=== PATIENT | male | born 1950 | race American Indian/Alaskan Native ===

== ENCOUNTER 2017-10-02 18:16 | Inpatient (IN) | payer MEDICARE, MEDICAID ==
[~2017-10-02] VITALS: Ht 170.2 cm; Wt 67.7 kg
[2017-10-02 01:20] VITALS: BP 107/58
[~2017-10-02 18:16] MED LIST: AMLO2.5T2 PO; BENA40TA2 PO; BESI5DRO EACHEYE; BRIM5DRO3 RIGHTEYE; CINA30TA PO; DIALYSIS; DIAZ-351 PO; DIFL5DRO RIGHTEYE; FEXO-124 PO; LOSA25TA96 PO; NAS0.025NS BOTHNARES; PER5325T PO; POLY15DR56 EACHEYE; SEVE800T8 PO
[2017-10-02 19:03] LABS: BASOPHILS # (AUTO) 0.1 X10'3 (0-0.2); BASOPHILS % (AUTO) 0.8 % (0-1); EOSINOPHILS # (AUTO) 0.2 X10'3 (0-0.9); EOSINOPHILS % (AUTO) 2.9 % (0-6); HEMATOCRIT 35.7 % (42.0-52.0); HEMOGLOBIN 11.6 g/dl (14.0-17.9); LYMPHOCYTES # (AUTO) 0.8 X10'3 (1.1-4.8); LYMPHOCYTES % (AUTO) 10.5 % (21-51); MEAN CORPUSCULAR HEMOGLOBIN 27.2 PG (27.0-31.0); MEAN CORPUSCULAR HGB CONC 32.3 % (33.0-36.5); MEAN PLATELET VOLUME 8.2 FL (7.4-10.4); MONOCYTES # (AUTO) 0.3 X10'3 (0-0.9); MONOCYTES % (AUTO) 4.4 % (2-12); NEUTROPHILS # (AUTO) 6.3 X10'3 (1.8-7.7); NEUTROPHILS % (AUTO) 81.4 % (42-75); PLATELET COUNT 162 X10'3 (140-440); RED BLOOD COUNT 4.25 X10'6 (4.70-6.10); RED CELL DISTRIBUTION WIDTH 17.4 % (11.5-14.5); WHITE BLOOD COUNT 7.7 X10'3 (4.5-11.0)
[2017-10-02 19:14] LABS: INR 1.5 INR; PARTIAL THROMBOPLASTIN TIME 44 SECONDS (22-32)
[2017-10-02 19:17] LABS: ALANINE AMINOTRANSFERASE 21 U/L (12-78); ALBUMIN 2.4 G/DL (3.4-5.0); ALBUMIN/GLOBULIN RATIO 0.5 (1.1-1.5); ALKALINE PHOSPHATASE 150 IU/L (46-116); ANION GAP 10 (8-16); ASPARTATE AMINO TRANSFERASE 25 U/L (10-37); BILIRUBIN,TOTAL 0.9 MG/DL (0.1-1.0); BLOOD UREA NITROGEN 37 MG/DL (7-18); BUN/CREATININE RATIO 4.8 (5.4-32.0); CALCIUM 10.2 MG/DL (8.5-10.1); CHLORIDE 101 MMOL/L (99-107); CREATININE 7.65 MG/DL (0.60-1.10); GLUCOSE 100 MG/DL (70-104); MAGNESIUM 2.2 MG/DL (1.5-2.4); PHOSPHORUS 4.3 MG/DL (2.3-4.5); SODIUM 141 MMOL/L (135-145); TOTAL CARBON DIOXIDE 29.8 MMOL/L (24-32); TOTAL PROTEIN 7.4 G/DL (6.4-8.2); eGFR 7 ML/MIN
[2017-10-02] MEDS ORDERED: ondansetron/PF 4mg/2ml inj IV PRN (23:25)
[2017-10-02] MEDS ORDERED: acetaminophen 325mg tablet PO PRN ×2 (23:25)
[2017-10-02] MEDS ORDERED: diazepam 5mg tablet PO PRN (23:30)
[2017-10-03 00:30] VITALS: BP 107/58
[2017-10-03] MEDS: oxyCODONE/APAP 5-325mg tablet PO PRN (00:47)
[2017-10-03 06:21] LABS: BASOPHILS % (AUTO) 0.6 % (0-1); EOSINOPHILS # (AUTO) 0.2 X10'3 (0-0.9); EOSINOPHILS % (AUTO) 3.7 % (0-6); HEMATOCRIT 29.9 % (42.0-52.0); HEMOGLOBIN 9.6 g/dl (14.0-17.9); LYMPHOCYTES # (AUTO) 0.8 X10'3 (1.1-4.8); LYMPHOCYTES % (AUTO) 16.3 % (21-51); MEAN CORPUSCULAR HEMOGLOBIN 27.2 PG (27.0-31.0); MEAN CORPUSCULAR HGB CONC 32.2 % (33.0-36.5); MEAN CORPUSCULAR VOLUME 84.6 FL (78-98); MEAN PLATELET VOLUME 8.4 FL (7.4-10.4); MONOCYTES # (AUTO) 0.4 X10'3 (0-0.9); MONOCYTES % (AUTO) 7.4 % (2-12); NEUTROPHILS # (AUTO) 3.8 X10'3 (1.8-7.7); PLATELET COUNT 136 X10'3 (140-440); RED BLOOD COUNT 3.53 X10'6 (4.70-6.10); RED CELL DISTRIBUTION WIDTH 17.1 % (11.5-14.5); WHITE BLOOD COUNT 5.2 X10'3 (4.5-11.0)
[2017-10-03 07:04] LABS: ALANINE AMINOTRANSFERASE 19 U/L (12-78); ALBUMIN 1.8 G/DL (3.4-5.0); ALBUMIN/GLOBULIN RATIO 0.5 (1.1-1.5); ALKALINE PHOSPHATASE 115 IU/L (46-116); ANION GAP 9 (8-16); ASPARTATE AMINO TRANSFERASE 28 U/L (10-37); BILIRUBIN,TOTAL 0.7 MG/DL (0.1-1.0); BLOOD UREA NITROGEN 36 MG/DL (7-18); BUN/CREATININE RATIO 4.5 (5.4-32.0); CALCIUM 9.4 MG/DL (8.5-10.1); CHLORIDE 102 MMOL/L (99-107); CREATININE 8.03 MG/DL (0.60-1.10); GLUCOSE 69 MG/DL (70-104); MAGNESIUM 2.2 MG/DL (1.5-2.4); PHOSPHORUS 4.6 MG/DL (2.3-4.5); POTASSIUM 3.9 MMOL/L (3.5-5.1); SODIUM 139 MMOL/L (135-145); TOTAL CARBON DIOXIDE 28.4 MMOL/L (24-32); TOTAL PROTEIN 5.7 G/DL (6.4-8.2); eGFR 7 ML/MIN
[2017-10-03 07:18] VITALS: BP 90/44
[2017-10-03] MEDS ORDERED: FEXOFENADINE HCL PO SCH (08:00)
[2017-10-03] MEDS: cinacalcet 30mg tablet PO SCH (08:00)
[2017-10-03] MEDS: losartan 25mg tablet PO SCH (08:00)
[2017-10-03] MEDS: amLODIPine 2.5mg tablet PO SCH (08:00)
[2017-10-03] MEDS ORDERED: non-formulary drug (Benazepril Hcl* (Lotensin*) 1 TAB) PO SCH (08:00)
[2017-10-03] MEDS: lisinopril 20mg tablet PO SCH (08:00)
[2017-10-03] MEDS ORDERED: FLUNISOLIDE BOTHNARES SCH (08:00)
[2017-10-03] MEDS: DIFLUPREDNATE 0.05% RIGHTEYE SCH (08:00)
[2017-10-03] MEDS: BESIFLOXACIN HYDROCHLORIDE EACHEYE SCH (08:00)
[2017-10-03] MEDS: OPTH RIGHTEYE SCH (08:00)
[2017-10-03] MEDS: heparin, porcine 5000 units/ml vial SQ SCH ×2 (08:00→21:18)
[2017-10-03] MEDS: EYE RIGHTEYE SCH (08:00)
[2017-10-03] MEDS: cetirizine 10mg tablet PO SCH ×2 (08:16→09:02)
[2017-10-03] MEDS: sevelamer carbonate 800mg tablet PO SCH ×3 (08:16→18:00)
[2017-10-03 08:17] VITALS: BP 90/49
[2017-10-03] MEDS: brimonidine 0.2% 5 ML ophthalmic drops RIGHTEYE SCH ×2 (11:18→21:18)
[2017-10-03] MEDS: fluticasone nasal spray 16GM bottle NS SCH (11:19)
[2017-10-03 11:39] VITALS: BP 101/52
[2017-10-03 19:30] VITALS: BP 111/55
[2017-10-03 23:30] VITALS: BP 114/68
[2017-10-04 06:10] LABS: BASOPHILS % (AUTO) 0.4 % (0-1); EOSINOPHILS # (AUTO) 0.2 X10'3 (0-0.9); EOSINOPHILS % (AUTO) 3.4 % (0-6); HEMATOCRIT 30.1 % (42.0-52.0); HEMOGLOBIN 9.8 g/dl (14.0-17.9); LYMPHOCYTES # (AUTO) 1.1 X10'3 (1.1-4.8); LYMPHOCYTES % (AUTO) 18.8 % (21-51); MEAN CORPUSCULAR HEMOGLOBIN 27.6 PG (27.0-31.0); MEAN CORPUSCULAR HGB CONC 32.4 % (33.0-36.5); MEAN CORPUSCULAR VOLUME 85.2 FL (78-98); MEAN PLATELET VOLUME 8.3 FL (7.4-10.4); MONOCYTES # (AUTO) 0.3 X10'3 (0-0.9); MONOCYTES % (AUTO) 5.9 % (2-12); NEUTROPHILS % (AUTO) 71.5 % (42-75); PLATELET COUNT 134 X10'3 (140-440); RED BLOOD COUNT 3.53 X10'6 (4.70-6.10); RED CELL DISTRIBUTION WIDTH 17.8 % (11.5-14.5); WHITE BLOOD COUNT 5.6 X10'3 (4.5-11.0)
[2017-10-04 06:49] LABS: ALANINE AMINOTRANSFERASE 22 U/L (12-78); ALBUMIN 1.9 G/DL (3.4-5.0); ALBUMIN/GLOBULIN RATIO 0.5 (1.1-1.5); ALKALINE PHOSPHATASE 111 IU/L (46-116); ANION GAP 8 (8-16); ASPARTATE AMINO TRANSFERASE 29 U/L (10-37); BILIRUBIN,TOTAL 0.6 MG/DL (0.1-1.0); BLOOD UREA NITROGEN 41 MG/DL (7-18); BUN/CREATININE RATIO 4.6 (5.4-32.0); CALCIUM 9.3 MG/DL (8.5-10.1); CHLORIDE 101 MMOL/L (99-107); CREATININE 8.91 MG/DL (0.60-1.10); GLUCOSE 66 MG/DL (70-104); MAGNESIUM 2.2 MG/DL (1.5-2.4); PHOSPHORUS 5.1 MG/DL (2.3-4.5); POTASSIUM 4.2 MMOL/L (3.5-5.1); SODIUM 138 MMOL/L (135-145); TOTAL PROTEIN 5.9 G/DL (6.4-8.2); eGFR 6 ML/MIN
[2017-10-04 07:00] VITALS: BP 127/58
[2017-10-04] MEDS: sevelamer carbonate 800mg tablet PO SCH ×3 (07:30→17:30)
[2017-10-04] MEDS: losartan 25mg tablet PO SCH (08:00)
[2017-10-04] MEDS: EYE RIGHTEYE SCH (08:00)
[2017-10-04] MEDS: BESIFLOXACIN HYDROCHLORIDE EACHEYE SCH (08:00)
[2017-10-04] MEDS ORDERED: LIDOcaine 1% (10mg/ml) 2ml vial SQ ONE (08:00)
[2017-10-04] MEDS: amLODIPine 2.5mg tablet PO SCH (08:00)
[2017-10-04] MEDS: DIFLUPREDNATE 0.05% RIGHTEYE SCH (08:00)
[2017-10-04] MEDS: brimonidine 0.2% 5 ML ophthalmic drops RIGHTEYE SCH ×2 (08:00→21:25)
[2017-10-04] MEDS ORDERED: heparin 1,000unit/ml 10ml vial 10 ML IV ONE (08:00)
[2017-10-04] MEDS: fluticasone nasal spray 16GM bottle NS SCH (08:00)
[2017-10-04] MEDS ORDERED: epoetin 20,000 units/ml inj IV ONE (08:00)
[2017-10-04] MEDS: heparin, porcine 5000 units/ml vial SQ SCH ×2 (08:00→21:25)
[2017-10-04] MEDS: lisinopril 20mg tablet PO SCH (08:00)
[2017-10-04] MEDS: OPTH RIGHTEYE SCH (08:00)
[2017-10-04] MEDS: cinacalcet 30mg tablet PO SCH (08:00)
[2017-10-04 11:20] VITALS: BP 132/62
[2017-10-04] MEDS: oxyCODONE/APAP 5-325mg tablet PO PRN (11:58)
[2017-10-04 19:00] VITALS: BP 104/54
[2017-10-04] MEDS: polyvinyl alcohol ophthalmic drops 15ml bottle EACHEYE PRN (21:27)
[2017-10-04 23:00] VITALS: BP 105/58
[2017-10-05] MEDS: sevelamer carbonate 800mg tablet PO SCH ×3 (07:30→16:56)
[2017-10-05 07:32] VITALS: BP 122/63
[2017-10-05] MEDS: BESIFLOXACIN HYDROCHLORIDE EACHEYE SCH (08:00)
[2017-10-05] MEDS: OPTH RIGHTEYE SCH (08:00)
[2017-10-05] MEDS: DIFLUPREDNATE 0.05% RIGHTEYE SCH (08:00)
[2017-10-05] MEDS: heparin, porcine 5000 units/ml vial SQ SCH ×2 (08:00→19:50)
[2017-10-05] MEDS: EYE RIGHTEYE SCH (08:00)
[2017-10-05] MEDS: fluticasone nasal spray 16GM bottle NS SCH (08:00)
[2017-10-05] MEDS: losartan 25mg tablet PO SCH (09:26)
[2017-10-05] MEDS: cetirizine 10mg tablet PO SCH (09:26)
[2017-10-05] MEDS: amLODIPine 2.5mg tablet PO SCH (09:26)
[2017-10-05] MEDS: cinacalcet 30mg tablet PO SCH (09:26)
[2017-10-05] MEDS: lisinopril 20mg tablet PO SCH (09:27)
[2017-10-05] MEDS: brimonidine 0.2% 5 ML ophthalmic drops RIGHTEYE SCH ×2 (09:28→19:49)
[2017-10-05 11:00] VITALS: BP 119/59
[2017-10-05] MEDS: oxyCODONE/APAP 5-325mg tablet PO PRN (11:10)
[2017-10-05 19:00] VITALS: BP 134/74
[2017-10-06] VITALS: BP 111/66
[2017-10-06 05:59] LABS: BASOPHILS % (AUTO) 0.8 % (0-1); EOSINOPHILS # (AUTO) 0.2 X10'3 (0-0.9); HEMATOCRIT 31.6 % (42.0-52.0); HEMOGLOBIN 10.2 g/dl (14.0-17.9); LYMPHOCYTES # (AUTO) 0.8 X10'3 (1.1-4.8); LYMPHOCYTES % (AUTO) 16.9 % (21-51); MEAN CORPUSCULAR HEMOGLOBIN 27.6 PG (27.0-31.0); MEAN CORPUSCULAR HGB CONC 32.3 % (33.0-36.5); MEAN CORPUSCULAR VOLUME 85.5 FL (78-98); MEAN PLATELET VOLUME 8.4 FL (7.4-10.4); MONOCYTES # (AUTO) 0.3 X10'3 (0-0.9); NEUTROPHILS # (AUTO) 3.5 X10'3 (1.8-7.7); NEUTROPHILS % (AUTO) 71.3 % (42-75); PLATELET COUNT 138 X10'3 (140-440); RED CELL DISTRIBUTION WIDTH 17.8 % (11.5-14.5); WHITE BLOOD COUNT 4.9 X10'3 (4.5-11.0)
[2017-10-06 06:28] LABS: ALANINE AMINOTRANSFERASE 20 U/L (12-78); ALBUMIN 1.9 G/DL (3.4-5.0); ALBUMIN/GLOBULIN RATIO 0.4 (1.1-1.5); ALKALINE PHOSPHATASE 128 IU/L (46-116); ANION GAP 8 (8-16); ASPARTATE AMINO TRANSFERASE 22 U/L (10-37); BILIRUBIN,TOTAL 0.7 MG/DL (0.1-1.0); BLOOD UREA NITROGEN 27 MG/DL (7-18); CALCIUM 8.8 MG/DL (8.5-10.1); CHLORIDE 101 MMOL/L (99-107); CREATININE 6.67 MG/DL (0.60-1.10); GLUCOSE 79 MG/DL (70-104); PHOSPHORUS 4.7 MG/DL (2.3-4.5); POTASSIUM 4.1 MMOL/L (3.5-5.1); SODIUM 139 MMOL/L (135-145); TOTAL CARBON DIOXIDE 30.5 MMOL/L (24-32); TOTAL PROTEIN 6.3 G/DL (6.4-8.2); eGFR 8 ML/MIN
[2017-10-06] MEDS: sevelamer carbonate 800mg tablet PO SCH ×3 (07:30→17:30)
[2017-10-06] MEDS ORDERED: heparin 1,000unit/ml 10ml vial 10 ML IV ONE (08:00)
[2017-10-06] MEDS: BESIFLOXACIN HYDROCHLORIDE EACHEYE SCH (08:00)
[2017-10-06] MEDS ORDERED: normal saline 1000ml 250 ML IV PRN (08:00)
[2017-10-06] MEDS: heparin, porcine 5000 units/ml vial SQ SCH ×2 (08:00→20:00)
[2017-10-06] MEDS: brimonidine 0.2% 5 ML ophthalmic drops RIGHTEYE SCH ×2 (08:00→20:00)
[2017-10-06] MEDS: lisinopril 20mg tablet PO SCH (08:00)
[2017-10-06] MEDS: DIFLUPREDNATE 0.05% RIGHTEYE SCH (08:00)
[2017-10-06] MEDS: OPTH RIGHTEYE SCH (08:00)
[2017-10-06] MEDS ORDERED: epoetin 20,000 units/ml inj IV ONE (08:00)
[2017-10-06] MEDS: fluticasone nasal spray 16GM bottle NS SCH (08:00)
[2017-10-06] MEDS: losartan 25mg tablet PO SCH (08:00)
[2017-10-06] MEDS ORDERED: LIDOcaine 1% (10mg/ml) 2ml vial SQ ONE (08:00)
[2017-10-06] MEDS: cinacalcet 30mg tablet PO SCH (08:00)
[2017-10-06] MEDS: cetirizine 10mg tablet PO SCH (08:00)
[2017-10-06] MEDS: amLODIPine 2.5mg tablet PO SCH (08:00)
[2017-10-06] MEDS: EYE RIGHTEYE SCH (08:00)
[2017-10-06 08:10] VITALS: BP 129/70
[2017-10-06] MEDS ORDERED: LIDOcaine 2% 5ml jelly TOP STA (09:59)
[2017-10-06 20:00] VITALS: BP 128/70
[2017-10-07 05:59] LABS: BASOPHILS % (AUTO) 0.8 % (0-1); EOSINOPHILS # (AUTO) 0.1 X10'3 (0-0.9); EOSINOPHILS % (AUTO) 2.6 % (0-6); HEMATOCRIT 33.3 % (42.0-52.0); HEMOGLOBIN 10.6 g/dl (14.0-17.9); LYMPHOCYTES # (AUTO) 0.8 X10'3 (1.1-4.8); LYMPHOCYTES % (AUTO) 15.4 % (21-51); MEAN CORPUSCULAR HEMOGLOBIN 27.2 PG (27.0-31.0); MEAN CORPUSCULAR VOLUME 84.9 FL (78-98); MEAN PLATELET VOLUME 7.9 FL (7.4-10.4); MONOCYTES # (AUTO) 0.4 X10'3 (0-0.9); MONOCYTES % (AUTO) 7.2 % (2-12); NEUTROPHILS # (AUTO) 3.6 X10'3 (1.8-7.7); PLATELET COUNT 129 X10'3 (140-440); RED BLOOD COUNT 3.92 X10'6 (4.70-6.10); RED CELL DISTRIBUTION WIDTH 18.9 % (11.5-14.5); WHITE BLOOD COUNT 4.9 X10'3 (4.5-11.0)
[2017-10-07 07:02] LABS: ALANINE AMINOTRANSFERASE 16 U/L (12-78); ALBUMIN 1.9 G/DL (3.4-5.0); ALBUMIN/GLOBULIN RATIO 0.4 (1.1-1.5); ALKALINE PHOSPHATASE 129 IU/L (46-116); ANION GAP 8 (8-16); ASPARTATE AMINO TRANSFERASE 19 U/L (10-37); BILIRUBIN,TOTAL 0.8 MG/DL (0.1-1.0); BLOOD UREA NITROGEN 14 MG/DL (7-18); BUN/CREATININE RATIO 3.2 (5.4-32.0); CALCIUM 9.3 MG/DL (8.5-10.1); CHLORIDE 101 MMOL/L (99-107); CREATININE 4.44 MG/DL (0.60-1.10); GLUCOSE 51 MG/DL (70-104); MAGNESIUM 1.9 MG/DL (1.5-2.4); PHOSPHORUS 3.8 MG/DL (2.3-4.5); POTASSIUM 3.3 MMOL/L (3.5-5.1); SODIUM 139 MMOL/L (135-145); TOTAL CARBON DIOXIDE 29.6 MMOL/L (24-32); TOTAL PROTEIN 6.3 G/DL (6.4-8.2); eGFR 13 ML/MIN
[2017-10-07] MEDS: sevelamer carbonate 800mg tablet PO SCH ×3 (07:30→16:29)
[2017-10-07] MEDS: amLODIPine 2.5mg tablet PO SCH (08:00)
[2017-10-07] MEDS: fluticasone nasal spray 16GM bottle NS SCH (08:00)
[2017-10-07] MEDS: losartan 25mg tablet PO SCH (08:00)
[2017-10-07] MEDS: cetirizine 10mg tablet PO SCH (08:00)
[2017-10-07] MEDS: heparin, porcine 5000 units/ml vial SQ SCH ×2 (08:00→20:00)
[2017-10-07] MEDS: cinacalcet 30mg tablet PO SCH (08:00)
[2017-10-07] MEDS: lisinopril 20mg tablet PO SCH (08:00)
[2017-10-07] MEDS: brimonidine 0.2% 5 ML ophthalmic drops RIGHTEYE SCH ×2 (08:00→21:19)
[2017-10-07 12:39] VITALS: BP 124/65
[2017-10-07] MEDS ORDERED: sevelamer carbonate 800mg tablet PO ONE (16:26)
[2017-10-08] MEDS: sevelamer carbonate 800mg tablet PO SCH ×3 (07:30→17:30)
[2017-10-08 08:00] VITALS: BP 110/57
[2017-10-08] MEDS: heparin, porcine 5000 units/ml vial SQ SCH ×2 (08:00→19:56)
[2017-10-08] MEDS: fluticasone nasal spray 16GM bottle NS SCH (08:00)
[2017-10-08] MEDS: brimonidine 0.2% 5 ML ophthalmic drops RIGHTEYE SCH ×2 (08:00→19:56)
[2017-10-08] MEDS: cetirizine 10mg tablet PO SCH (08:00)
[2017-10-08 08:08] LABS: HBSAG SCREEN Negative (Negative)
[2017-10-08] MEDS: cinacalcet 30mg tablet PO SCH (08:59)
[2017-10-08] MEDS: amLODIPine 2.5mg tablet PO SCH (08:59)
[2017-10-08] MEDS: losartan 25mg tablet PO SCH (10:22)
[2017-10-08] MEDS: lisinopril 20mg tablet PO SCH (10:23)
[2017-10-08 12:15] VITALS: BP 108/57
[2017-10-08 19:00] VITALS: BP 111/62
[2017-10-08 23:23] VITALS: BP 113/65
[2017-10-09] MEDS ORDERED: heparin 1,000unit/ml 10ml vial 10 ML IV ONE (05:09)
[2017-10-09] MEDS ORDERED: albumin (human) 25% 100ml IV 100 ML IV PRN (05:10)
[2017-10-09] MEDS ORDERED: epoetin 20,000 units/ml inj IV ONE (05:10)
[2017-10-09] MEDS ORDERED: heparin 1,000 units/ml 10ml inj IV ONE (05:10)
[2017-10-09 06:56] LABS: BASOPHILS # (AUTO) 0.1 X10'3 (0-0.2); BASOPHILS % (AUTO) 0.9 % (0-1); EOSINOPHILS # (AUTO) 0.2 X10'3 (0-0.9); HEMATOCRIT 31.4 % (42.0-52.0); HEMOGLOBIN 10.2 g/dl (14.0-17.9); LYMPHOCYTES % (AUTO) 16.4 % (21-51); MEAN CORPUSCULAR HEMOGLOBIN 27.2 PG (27.0-31.0); MEAN CORPUSCULAR HGB CONC 32.5 % (33.0-36.5); MEAN CORPUSCULAR VOLUME 83.8 FL (78-98); MEAN PLATELET VOLUME 7.6 FL (7.4-10.4); MONOCYTES # (AUTO) 0.4 X10'3 (0-0.9); MONOCYTES % (AUTO) 7.2 % (2-12); NEUTROPHILS # (AUTO) 4.5 X10'3 (1.8-7.7); NEUTROPHILS % (AUTO) 72.5 % (42-75); PLATELET COUNT 153 X10'3 (140-440); RED BLOOD COUNT 3.74 X10'6 (4.70-6.10); RED CELL DISTRIBUTION WIDTH 18.4 % (11.5-14.5); WHITE BLOOD COUNT 6.2 X10'3 (4.5-11.0)
[2017-10-09 07:00] VITALS: BP 113/63
[2017-10-09] MEDS ORDERED: LIDOcaine 1% (10mg/ml) 2ml vial SQ ONE ×2 (07:05→15:51)
[2017-10-09] MEDS: sevelamer carbonate 800mg tablet PO SCH ×3 (07:30→19:00)
[2017-10-09] MEDS: heparin, porcine 5000 units/ml vial SQ SCH ×2 (08:00→20:00)
[2017-10-09] MEDS: fluticasone nasal spray 16GM bottle NS SCH (08:00)
[2017-10-09] MEDS ORDERED: LIDOcaine 2% 5ml jelly TOP PRN (08:40)
[2017-10-09 11:00] VITALS: BP 142/66
[2017-10-09] MEDS: losartan 25mg tablet PO SCH (11:07)
[2017-10-09] MEDS: lisinopril 20mg tablet PO SCH (11:08)
[2017-10-09] MEDS: amLODIPine 2.5mg tablet PO SCH (11:08)
[2017-10-09] MEDS: cetirizine 10mg tablet PO SCH (11:08)
[2017-10-09] MEDS: cinacalcet 30mg tablet PO SCH (11:08)
[2017-10-09] MEDS: brimonidine 0.2% 5 ML ophthalmic drops RIGHTEYE SCH ×2 (11:08→20:00)
[2017-10-09 12:20] VITALS: BP 134/72
[2017-10-09 20:00] VITALS: BP 118/60
[2017-10-09] MEDS: oxyCODONE/APAP 5-325mg tablet PO PRN (22:02)
[2017-10-10] VITALS: BP 104/53
[2017-10-10 07:00] VITALS: BP 117/60
[2017-10-10] MEDS: fluticasone nasal spray 16GM bottle NS SCH (08:00)
[2017-10-10] MEDS: sevelamer carbonate 800mg tablet PO SCH ×3 (09:41→17:03)
[2017-10-10] MEDS: losartan 25mg tablet PO SCH (09:41)
[2017-10-10] MEDS: lisinopril 20mg tablet PO SCH (09:42)
[2017-10-10] MEDS: brimonidine 0.2% 5 ML ophthalmic drops RIGHTEYE SCH ×2 (09:42→21:49)
[2017-10-10] MEDS: cetirizine 10mg tablet PO SCH (09:42)
[2017-10-10] MEDS: cinacalcet 30mg tablet PO SCH (09:42)
[2017-10-10] MEDS: amLODIPine 2.5mg tablet PO SCH (09:42)
[2017-10-10] MEDS: heparin, porcine 5000 units/ml vial SQ SCH ×2 (09:43→21:30)
[2017-10-10 11:00] VITALS: BP 118/66
[2017-10-10 19:30] VITALS: BP 133/78
[2017-10-11] VITALS: BP 113/61
[2017-10-11 06:00] LABS: BASOPHILS % (AUTO) 0.6 % (0-1); EOSINOPHILS # (AUTO) 0.2 X10'3 (0-0.9); EOSINOPHILS % (AUTO) 3.8 % (0-6); HEMATOCRIT 32.1 % (42.0-52.0); HEMOGLOBIN 10.2 g/dl (14.0-17.9); LYMPHOCYTES # (AUTO) 0.8 X10'3 (1.1-4.8); LYMPHOCYTES % (AUTO) 13.7 % (21-51); MEAN CORPUSCULAR HEMOGLOBIN 26.8 PG (27.0-31.0); MEAN CORPUSCULAR HGB CONC 31.8 % (33.0-36.5); MEAN CORPUSCULAR VOLUME 84.5 FL (78-98); MEAN PLATELET VOLUME 8.1 FL (7.4-10.4); MONOCYTES # (AUTO) 0.3 X10'3 (0-0.9); MONOCYTES % (AUTO) 5.9 % (2-12); NEUTROPHILS # (AUTO) 4.4 X10'3 (1.8-7.7); PLATELET COUNT 156 X10'3 (140-440); RED CELL DISTRIBUTION WIDTH 18.5 % (11.5-14.5); WHITE BLOOD COUNT 5.7 X10'3 (4.5-11.0)
[2017-10-11 06:21] LABS: ALBUMIN 1.8 G/DL (3.4-5.0); ANION GAP 6 (8-16); BLOOD UREA NITROGEN 21 MG/DL (7-18); BUN/CREATININE RATIO 3.8 (5.4-32.0); CALCIUM 8.4 MG/DL (8.5-10.1); CHLORIDE 100 MMOL/L (99-107); CREATININE 5.51 MG/DL (0.60-1.10); GLUCOSE 66 MG/DL (70-104); MAGNESIUM 1.9 MG/DL (1.5-2.4); PHOSPHORUS 3.4 MG/DL (2.3-4.5); POTASSIUM 4.3 MMOL/L (3.5-5.1); SODIUM 137 MMOL/L (135-145); TOTAL CARBON DIOXIDE 30.7 MMOL/L (24-32); eGFR 10 ML/MIN
[2017-10-11 07:10] VITALS: BP 104/53
[2017-10-11] MEDS ORDERED: heparin 1,000unit/ml 10ml vial 10 ML IV ONE (08:17)
[2017-10-11] MEDS ORDERED: albumin (human) 25% 100ml IV 100 ML IV PRN (08:20)
[2017-10-11] MEDS ORDERED: heparin 1,000 units/ml 10ml inj IV ONE (08:20)
[2017-10-11] MEDS: brimonidine 0.2% 5 ML ophthalmic drops RIGHTEYE SCH ×2 (08:58→20:23)
[2017-10-11] MEDS: cetirizine 10mg tablet PO SCH (08:58)
[2017-10-11] MEDS: losartan 25mg tablet PO SCH (08:58)
[2017-10-11] MEDS: heparin, porcine 5000 units/ml vial SQ SCH ×2 (08:59→20:00)
[2017-10-11] MEDS: lisinopril 20mg tablet PO SCH (08:59)
[2017-10-11] MEDS: cinacalcet 30mg tablet PO SCH (08:59)
[2017-10-11] MEDS: amLODIPine 2.5mg tablet PO SCH (08:59)
[2017-10-11] MEDS: sevelamer carbonate 800mg tablet PO SCH ×3 (09:00→17:17)
[2017-10-11] MEDS: fluticasone nasal spray 16GM bottle NS SCH (09:10)
[2017-10-11 11:13] VITALS: BP 104/61
[2017-10-11] MEDS ORDERED: LIDOcaine 1% (10mg/ml) 2ml vial SQ ONE ×2 (16:00→16:20)
[2017-10-11 19:15] VITALS: BP 140/72
[2017-10-12] VITALS (17 sets, daily range): BP systolic 74–126; BP diastolic 33–71
[2017-10-12 05:56] LABS: BASOPHILS # (AUTO) 0.1 X10'3 (0-0.2); BASOPHILS % (AUTO) 0.8 % (0-1); EOSINOPHILS # (AUTO) 0.2 X10'3 (0-0.9); EOSINOPHILS % (AUTO) 2.7 % (0-6); HEMATOCRIT 35.5 % (42.0-52.0); HEMOGLOBIN 11.5 g/dl (14.0-17.9); LYMPHOCYTES # (AUTO) 0.8 X10'3 (1.1-4.8); LYMPHOCYTES % (AUTO) 12.4 % (21-51); MEAN CORPUSCULAR HEMOGLOBIN 27.2 PG (27.0-31.0); MEAN CORPUSCULAR HGB CONC 32.4 % (33.0-36.5); MEAN CORPUSCULAR VOLUME 83.8 FL (78-98); MEAN PLATELET VOLUME 8.4 FL (7.4-10.4); MONOCYTES # (AUTO) 0.4 X10'3 (0-0.9); MONOCYTES % (AUTO) 5.4 % (2-12); NEUTROPHILS # (AUTO) 5.1 X10'3 (1.8-7.7); NEUTROPHILS % (AUTO) 78.7 % (42-75); PLATELET COUNT 186 X10'3 (140-440); RED BLOOD COUNT 4.24 X10'6 (4.70-6.10); RED CELL DISTRIBUTION WIDTH 18.6 % (11.5-14.5); WHITE BLOOD COUNT 6.5 X10'3 (4.5-11.0)
[2017-10-12 06:26] LABS: ANION GAP 9 (8-16); BLOOD UREA NITROGEN 13 MG/DL (7-18); BUN/CREATININE RATIO 3.1 (5.4-32.0); CALCIUM 8.4 MG/DL (8.5-10.1); CHLORIDE 100 MMOL/L (99-107); CREATININE 4.22 MG/DL (0.60-1.10); GLUCOSE 57 MG/DL (70-104); MAGNESIUM 1.9 MG/DL (1.5-2.4); POTASSIUM 3.7 MMOL/L (3.5-5.1); SODIUM 138 MMOL/L (135-145); eGFR 14 ML/MIN
[2017-10-12] MEDS: sevelamer carbonate 800mg tablet PO SCH ×3 (07:30→16:22)
[2017-10-12] MEDS: amLODIPine 2.5mg tablet PO SCH (07:53)
[2017-10-12] MEDS: fluticasone nasal spray 16GM bottle NS SCH (07:53)
[2017-10-12] MEDS: losartan 25mg tablet PO SCH (07:53)
[2017-10-12] MEDS: cetirizine 10mg tablet PO SCH (07:54)
[2017-10-12] MEDS: brimonidine 0.2% 5 ML ophthalmic drops RIGHTEYE SCH ×2 (07:54→20:16)
[2017-10-12] MEDS: lisinopril 20mg tablet PO SCH (07:54)
[2017-10-12] MEDS: cinacalcet 30mg tablet PO SCH (07:54)
[2017-10-12] MEDS: heparin, porcine 5000 units/ml vial SQ SCH ×2 (07:55→20:17)
[2017-10-12] MEDS ORDERED: ringers solution, lacted 1,000 ML IV SCH (16:43)
[2017-10-12] MEDS ORDERED: enalaprilat dihydrate 2.5mg/2ml vial IV PRN (16:45)
[2017-10-12] MEDS ORDERED: hydrALAZINE 20mg/ml inj. IV PRN (16:45)
[2017-10-12] MEDS ORDERED: morphine sulfate 8 MG/ML SYRINGE IV PRN ×2 (16:45)
[2017-10-12] MEDS ORDERED: ondansetron/PF 4mg/2ml inj IV PRN (16:45)
[2017-10-12] MEDS ORDERED: fentaNYL/PF 50MCG/1 ML 2ML syringe IV PRN ×2 (16:45)
[2017-10-12] MEDS ORDERED: rocuronium 10mg/ml inj IV ONE (16:49)
[2017-10-12] MEDS ORDERED: sevoflurane 250ml liquid IH ONE (16:50)
[2017-10-12] MEDS ORDERED: neostigmine methylsulfate 1 MG/ML 10ml vial ONE (17:23)
[2017-10-12] MEDS ORDERED: etomidate 2mg/ml inj. ONE (17:23)
[2017-10-12] MEDS ORDERED: glycopyrrolate 0.2mg/ml inj ONE (17:23)
[2017-10-12] MEDS ORDERED: phenylephrine 10mg/ml inj IV ONE (17:41)
[2017-10-12] MEDS: oxyCODONE/APAP 5-325mg tablet PO PRN (21:39)
[2017-10-13] VITALS: BP 101/53
[2017-10-13 04:00] VITALS: BP 104/51
[2017-10-13 06:33] LABS: ALBUMIN 1.7 G/DL (3.4-5.0); ANION GAP 4 (8-16); BLOOD UREA NITROGEN 18 MG/DL (7-18); BUN/CREATININE RATIO 3.2 (5.4-32.0); CALCIUM 8.3 MG/DL (8.5-10.1); CHLORIDE 102 MMOL/L (99-107); CREATININE 5.56 MG/DL (0.60-1.10); GLUCOSE 53 MG/DL (70-104); MAGNESIUM 1.9 MG/DL (1.5-2.4); PHOSPHORUS 4.3 MG/DL (2.3-4.5); POTASSIUM 4.1 MMOL/L (3.5-5.1); SODIUM 138 MMOL/L (135-145); TOTAL CARBON DIOXIDE 31.6 MMOL/L (24-32); eGFR 10 ML/MIN
[2017-10-13 07:23] VITALS: BP 99/52
[2017-10-13] MEDS: fluticasone nasal spray 16GM bottle NS SCH (08:00)
[2017-10-13] MEDS ORDERED: heparin 1,000unit/ml 10ml vial 10 ML IV ONE (08:00)
[2017-10-13] MEDS: amLODIPine 2.5mg tablet PO SCH (08:00)
[2017-10-13] MEDS ORDERED: epoetin 20,000 units/ml inj IV ONE (08:00)
[2017-10-13] MEDS: losartan 25mg tablet PO SCH (08:00)
[2017-10-13] MEDS: lisinopril 20mg tablet PO SCH (08:00)
[2017-10-13] MEDS ORDERED: albumin (human) 25% 100ml IV 100 ML IV PRN (08:00)
[2017-10-13 08:13] LABS: BASOPHILS # (AUTO) 0.1 X10'3 (0-0.2); BASOPHILS % (AUTO) 1.3 % (0-1); EOSINOPHILS # (AUTO) 0.1 X10'3 (0-0.9); EOSINOPHILS % (AUTO) 3.4 % (0-6); HEMATOCRIT 28.7 % (42.0-52.0); HEMOGLOBIN 9.4 g/dl (14.0-17.9); LYMPHOCYTES % (AUTO) 25.8 % (21-51); MEAN CORPUSCULAR HEMOGLOBIN 27.4 PG (27.0-31.0); MEAN PLATELET VOLUME 8.6 FL (7.4-10.4); MONOCYTES # (AUTO) 0.4 X10'3 (0-0.9); MONOCYTES % (AUTO) 9.1 % (2-12); NEUTROPHILS # (AUTO) 2.4 X10'3 (1.8-7.7); NEUTROPHILS % (AUTO) 60.4 % (42-75); PLATELET COUNT 194 X10'3 (140-440); RED BLOOD COUNT 3.45 X10'6 (4.70-6.10); RED CELL DISTRIBUTION WIDTH 17.5 % (11.5-14.5)
[2017-10-13] MEDS: sevelamer carbonate 800mg tablet PO SCH ×3 (08:15→17:30)
[2017-10-13] MEDS: cetirizine 10mg tablet PO SCH (08:15)
[2017-10-13] MEDS: brimonidine 0.2% 5 ML ophthalmic drops RIGHTEYE SCH ×2 (08:15→19:51)
[2017-10-13] MEDS: cinacalcet 30mg tablet PO SCH (08:15)
[2017-10-13] MEDS: heparin, porcine 5000 units/ml vial SQ SCH ×2 (08:26→20:00)
[2017-10-13 11:00] VITALS: BP 78/49
[2017-10-13 11:22] VITALS: BP 97/49
[2017-10-13] MEDS ORDERED: LIDOcaine 1% (10mg/ml) 2ml vial SQ ONE (13:40)
[2017-10-13] MEDS: diphenhydrAMINE 25 MG/10 ML UD oral solution PO PRN (16:21)
[2017-10-13 20:00] VITALS: BP 128/72
[2017-10-14] VITALS: BP 108/52
[2017-10-14 06:13] LABS: BASOPHILS # (AUTO) 0.1 X10'3 (0-0.2); BASOPHILS % (AUTO) 1.6 % (0-1); EOSINOPHILS # (AUTO) 0.1 X10'3 (0-0.9); EOSINOPHILS % (AUTO) 2.8 % (0-6); HEMATOCRIT 34.1 % (42.0-52.0); LYMPHOCYTES # (AUTO) 0.9 X10'3 (1.1-4.8); MEAN CORPUSCULAR HEMOGLOBIN 27.3 PG (27.0-31.0); MEAN CORPUSCULAR HGB CONC 32.3 % (33.0-36.5); MEAN CORPUSCULAR VOLUME 84.6 FL (78-98); MEAN PLATELET VOLUME 8.2 FL (7.4-10.4); MONOCYTES # (AUTO) 0.3 X10'3 (0-0.9); MONOCYTES % (AUTO) 6.8 % (2-12); NEUTROPHILS # (AUTO) 3.4 X10'3 (1.8-7.7); NEUTROPHILS % (AUTO) 69.8 % (42-75); PLATELET COUNT 189 X10'3 (140-440); RED BLOOD COUNT 4.03 X10'6 (4.70-6.10); RED CELL DISTRIBUTION WIDTH 18.1 % (11.5-14.5); WHITE BLOOD COUNT 4.8 X10'3 (4.5-11.0)
[2017-10-14 06:46] LABS: ALBUMIN 1.9 G/DL (3.4-5.0); ANION GAP 6 (8-16); BLOOD UREA NITROGEN 9 MG/DL (7-18); BUN/CREATININE RATIO 2.5 (5.4-32.0); CALCIUM 8.4 MG/DL (8.5-10.1); CHLORIDE 101 MMOL/L (99-107); CREATININE 3.65 MG/DL (0.60-1.10); MAGNESIUM 1.8 MG/DL (1.5-2.4); PHOSPHORUS 2.4 MG/DL (2.3-4.5); SODIUM 137 MMOL/L (135-145); TOTAL CARBON DIOXIDE 29.8 MMOL/L (24-32); eGFR 17 ML/MIN
[2017-10-14 06:47] LABS: GLUCOSE 35 MG/DL (70-104)
[2017-10-14] MEDS ORDERED: dextrose 50%-water 50ml dispensing syringe IV ONE (06:52)
[2017-10-14 07:00] VITALS: BP 129/68
[2017-10-14] MEDS: sevelamer carbonate 800mg tablet PO SCH ×3 (07:30→17:30)
[2017-10-14] MEDS: brimonidine 0.2% 5 ML ophthalmic drops RIGHTEYE SCH ×2 (08:00→19:20)
[2017-10-14] MEDS: cinacalcet 30mg tablet PO SCH (08:00)
[2017-10-14] MEDS: fluticasone nasal spray 16GM bottle NS SCH (08:00)
[2017-10-14] MEDS: amLODIPine 2.5mg tablet PO SCH (08:00)
[2017-10-14] MEDS: lisinopril 20mg tablet PO SCH (08:00)
[2017-10-14] MEDS: multivitamin oral liquid (Certavite) 5ml cup PO SCH (08:00)
[2017-10-14] MEDS: heparin, porcine 5000 units/ml vial SQ SCH ×2 (08:00→19:23)
[2017-10-14] MEDS: cetirizine 10mg tablet PO SCH (08:00)
[2017-10-14] MEDS: losartan 25mg tablet PO SCH (08:00)
[2017-10-14] MEDS ORDERED: MESSAGE TO PHARMACY PO ONE (10:15)
[2017-10-14] MEDS ORDERED: dextrose 50%-water 50ml dispensing syringe IV PRN ×2 (10:15)
[2017-10-14] MEDS ORDERED: glucagon, human recombinant 1mg kit SUBCUT PRN (10:15)
[2017-10-14] MEDS ORDERED: insulin Lispro (HumaLOG) vial - multi-dose SQ SCH (10:15)
[2017-10-14] MEDS ORDERED: dextrose ORAL solution 15 GM/59 ML bottle PO PRN (10:15)
[2017-10-14 12:00] VITALS: BP 65/50
[2017-10-14 12:15] VITALS: BP 56/37
[2017-10-14 12:30] VITALS: BP 88/57
[2017-10-14] MEDS: diphenhydrAMINE 25 MG/10 ML UD oral solution PO PRN (19:27)
[2017-10-14 20:00] VITALS: BP 100/70
[2017-10-14] MEDS: insulin glargine (Lantus) pen - multi-dose SQ SCH (21:00)
[2017-10-15] VITALS: BP 97/55
[2017-10-15 06:50] VITALS: BP 104/56
[2017-10-15] MEDS: sevelamer carbonate 800mg tablet PO SCH ×3 (07:30→17:30)
[2017-10-15 07:42] LABS: BASOPHILS % (AUTO) 0.9 % (0-1); EOSINOPHILS # (AUTO) 0.2 X10'3 (0-0.9); EOSINOPHILS % (AUTO) 3.7 % (0-6); HEMATOCRIT 29.2 % (42.0-52.0); HEMOGLOBIN 9.3 g/dl (14.0-17.9); LYMPHOCYTES # (AUTO) 0.9 X10'3 (1.1-4.8); LYMPHOCYTES % (AUTO) 22.5 % (21-51); MEAN CORPUSCULAR HEMOGLOBIN 26.9 PG (27.0-31.0); MEAN CORPUSCULAR HGB CONC 31.9 % (33.0-36.5); MEAN CORPUSCULAR VOLUME 84.3 FL (78-98); MEAN PLATELET VOLUME 8.5 FL (7.4-10.4); MONOCYTES # (AUTO) 0.3 X10'3 (0-0.9); MONOCYTES % (AUTO) 8.4 % (2-12); NEUTROPHILS # (AUTO) 2.6 X10'3 (1.8-7.7); NEUTROPHILS % (AUTO) 64.5 % (42-75); PLATELET COUNT 183 X10'3 (140-440); RED BLOOD COUNT 3.46 X10'6 (4.70-6.10); RED CELL DISTRIBUTION WIDTH 17.8 % (11.5-14.5); WHITE BLOOD COUNT 4.1 X10'3 (4.5-11.0)
[2017-10-15] MEDS: losartan 25mg tablet PO SCH (08:00)
[2017-10-15] MEDS: fluticasone nasal spray 16GM bottle NS SCH (08:00)
[2017-10-15] MEDS: cetirizine 10mg tablet PO SCH (08:00)
[2017-10-15] MEDS: heparin, porcine 5000 units/ml vial SQ SCH ×2 (08:00→20:00)
[2017-10-15] MEDS: cinacalcet 30mg tablet PO SCH (08:00)
[2017-10-15] MEDS: multivitamin oral liquid (Certavite) 5ml cup PO SCH (08:00)
[2017-10-15 08:27] LABS: ALBUMIN 1.8 G/DL (3.4-5.0); ANION GAP 6 (8-16); BLOOD UREA NITROGEN 13 MG/DL (7-18); BUN/CREATININE RATIO 2.5 (5.4-32.0); CALCIUM 7.9 MG/DL (8.5-10.1); CHLORIDE 101 MMOL/L (99-107); CREATININE 5.11 MG/DL (0.60-1.10); GLUCOSE 85 MG/DL (70-104); MAGNESIUM 1.9 MG/DL (1.5-2.4); PHOSPHORUS 2.7 MG/DL (2.3-4.5); POTASSIUM 4.1 MMOL/L (3.5-5.1); SODIUM 136 MMOL/L (135-145); TOTAL CARBON DIOXIDE 28.8 MMOL/L (24-32); eGFR 11 ML/MIN
[2017-10-15] MEDS: polyvinyl alcohol ophthalmic drops 15ml bottle EACHEYE PRN (09:17)
[2017-10-15] MEDS: brimonidine 0.2% 5 ML ophthalmic drops RIGHTEYE SCH ×2 (09:17→20:32)
[2017-10-15 11:20] VITALS: BP 101/53
[2017-10-15] MEDS: dextrose ORAL solution 15 GM/59 ML bottle PO PRN (17:24)
[2017-10-15 19:10] VITALS: BP 110/60
[2017-10-15] MEDS: insulin glargine (Lantus) pen - multi-dose SQ SCH (21:00)
[2017-10-16 07:00] VITALS: BP 97/55
[2017-10-16] MEDS: dextrose ORAL solution 15 GM/59 ML bottle PO PRN ×2 (07:25→12:45)
[2017-10-16] MEDS: sevelamer carbonate 800mg tablet PO SCH ×3 (07:30→18:21)
[2017-10-16] MEDS: brimonidine 0.2% 5 ML ophthalmic drops RIGHTEYE SCH ×2 (08:00→20:12)
[2017-10-16] MEDS: multivitamin oral liquid (Certavite) 5ml cup PO SCH (08:00)
[2017-10-16] MEDS: cinacalcet 30mg tablet PO SCH (08:00)
[2017-10-16] MEDS: fluticasone nasal spray 16GM bottle NS SCH (08:00)
[2017-10-16] MEDS: heparin, porcine 5000 units/ml vial SQ SCH ×2 (08:00→20:12)
[2017-10-16] MEDS: losartan 25mg tablet PO SCH (08:00)
[2017-10-16] MEDS: cetirizine 10mg tablet PO SCH (08:00)
[2017-10-16 08:08] LABS: BASOPHILS % (AUTO) 0.5 % (0-1); EOSINOPHILS # (AUTO) 0.2 X10'3 (0-0.9); EOSINOPHILS % (AUTO) 3.6 % (0-6); HEMATOCRIT 28.9 % (42.0-52.0); HEMOGLOBIN 9.4 g/dl (14.0-17.9); LYMPHOCYTES # (AUTO) 0.9 X10'3 (1.1-4.8); LYMPHOCYTES % (AUTO) 17.8 % (21-51); MEAN CORPUSCULAR HGB CONC 32.3 % (33.0-36.5); MEAN CORPUSCULAR VOLUME 83.6 FL (78-98); MEAN PLATELET VOLUME 8.4 FL (7.4-10.4); MONOCYTES # (AUTO) 0.4 X10'3 (0-0.9); MONOCYTES % (AUTO) 7.2 % (2-12); NEUTROPHILS # (AUTO) 3.5 X10'3 (1.8-7.7); NEUTROPHILS % (AUTO) 70.9 % (42-75); PLATELET COUNT 183 X10'3 (140-440); RED BLOOD COUNT 3.46 X10'6 (4.70-6.10); RED CELL DISTRIBUTION WIDTH 18.2 % (11.5-14.5); WHITE BLOOD COUNT 4.9 X10'3 (4.5-11.0)
[2017-10-16 08:20] LABS: ALBUMIN 1.8 G/DL (3.4-5.0); ANION GAP 6 (8-16); BLOOD UREA NITROGEN 18 MG/DL (7-18); BUN/CREATININE RATIO 2.9 (5.4-32.0); CALCIUM 8.2 MG/DL (8.5-10.1); CHLORIDE 101 MMOL/L (99-107); CREATININE 6.29 MG/DL (0.60-1.10); GLUCOSE 62 MG/DL (70-104); PHOSPHORUS 3.4 MG/DL (2.3-4.5); POTASSIUM 4.6 MMOL/L (3.5-5.1); SODIUM 138 MMOL/L (135-145); TOTAL CARBON DIOXIDE 31.4 MMOL/L (24-32); eGFR 9 ML/MIN
[2017-10-16] MEDS ORDERED: normal saline 1000ml 250 ML IV PRN (10:48)
[2017-10-16] MEDS ORDERED: LIDOcaine 1% (10mg/ml) 2ml vial SQ ONE (10:50)
[2017-10-16] MEDS ORDERED: heparin 1,000 units/ml 10ml inj IV ONE (10:50)
[2017-10-16] MEDS ORDERED: epoetin 20,000 units/ml inj IV ONE (10:50)
[2017-10-16 11:00] VITALS: BP 112/60
[2017-10-16] MEDS: zinc sulfate 220mg capsule PO SCH ×2 (13:50→20:12)
[2017-10-16] MEDS: megestrol acetate 20mg tablet PO SCH (18:23)
[2017-10-16 18:40] VITALS: BP 88/56
[2017-10-16] MEDS: insulin glargine (Lantus) pen - multi-dose SQ SCH (21:00)
[2017-10-17] VITALS: BP_SYST 101; BP_SYST 88; BP_DIAS 53; BP_DIAS 56
[2017-10-17 06:00] VITALS: BP 112/63
[2017-10-17 06:12] LABS: BASOPHILS % (AUTO) 0.8 % (0-1); EOSINOPHILS # (AUTO) 0.1 X10'3 (0-0.9); EOSINOPHILS % (AUTO) 2.8 % (0-6); HEMATOCRIT 29.8 % (42.0-52.0); HEMOGLOBIN 9.6 g/dl (14.0-17.9); LYMPHOCYTES # (AUTO) 0.9 X10'3 (1.1-4.8); LYMPHOCYTES % (AUTO) 17.4 % (21-51); MEAN CORPUSCULAR HEMOGLOBIN 26.9 PG (27.0-31.0); MEAN CORPUSCULAR HGB CONC 32.1 % (33.0-36.5); MEAN CORPUSCULAR VOLUME 83.9 FL (78-98); MEAN PLATELET VOLUME 8.3 FL (7.4-10.4); MONOCYTES # (AUTO) 0.4 X10'3 (0-0.9); MONOCYTES % (AUTO) 6.8 % (2-12); NEUTROPHILS # (AUTO) 3.7 X10'3 (1.8-7.7); NEUTROPHILS % (AUTO) 72.2 % (42-75); PLATELET COUNT 175 X10'3 (140-440); RED BLOOD COUNT 3.56 X10'6 (4.70-6.10); RED CELL DISTRIBUTION WIDTH 18.4 % (11.5-14.5); WHITE BLOOD COUNT 5.1 X10'3 (4.5-11.0)
[2017-10-17 06:25] LABS: ALBUMIN 1.8 G/DL (3.4-5.0); ANION GAP 7 (8-16); BLOOD UREA NITROGEN 11 MG/DL (7-18); BUN/CREATININE RATIO 2.7 (5.4-32.0); CALCIUM 8.5 MG/DL (8.5-10.1); CHLORIDE 99 MMOL/L (99-107); CREATININE 4.04 MG/DL (0.60-1.10); GLUCOSE 74 MG/DL (70-104); MAGNESIUM 1.8 MG/DL (1.5-2.4); PHOSPHORUS 2.5 MG/DL (2.3-4.5); SODIUM 137 MMOL/L (135-145); TOTAL CARBON DIOXIDE 31.4 MMOL/L (24-32); eGFR 15 ML/MIN
[2017-10-17] MEDS: brimonidine 0.2% 5 ML ophthalmic drops RIGHTEYE SCH ×2 (08:00→20:00)
[2017-10-17] MEDS: heparin, porcine 5000 units/ml vial SQ SCH ×2 (08:00→20:00)
[2017-10-17] MEDS: fluticasone nasal spray 16GM bottle NS SCH (08:00)
[2017-10-17] MEDS: multivitamin oral liquid (Certavite) 5ml cup PO SCH (08:00)
[2017-10-17] MEDS: predniSONE 5mg tablet PO SCH (08:30)
[2017-10-17] MEDS: diphenhydrAMINE 25 MG/10 ML UD oral solution PO PRN (09:11)
[2017-10-17] MEDS: zinc sulfate 220mg capsule PO SCH ×3 (09:11→20:39)
[2017-10-17] MEDS: sevelamer carbonate 800mg tablet PO SCH ×3 (09:11→17:30)
[2017-10-17] MEDS: megestrol acetate 20mg tablet PO SCH (09:12)
[2017-10-17] MEDS: losartan 25mg tablet PO SCH (09:13)
[2017-10-17] MEDS: cetirizine 10mg tablet PO SCH (09:13)
[2017-10-17] MEDS: cinacalcet 30mg tablet PO SCH (09:13)
[2017-10-17 11:00] VITALS: BP 116/68
[2017-10-17 19:00] VITALS: BP 100/45
[2017-10-17] MEDS: insulin glargine (Lantus) pen - multi-dose SQ SCH (21:00)
[2017-10-17 23:00] VITALS: BP 97/60
[2017-10-18] MEDS ORDERED: heparin 1,000unit/ml 10ml vial 10 ML IV ONE (06:47)
[2017-10-18] MEDS ORDERED: epoetin 20,000 units/ml inj IV ONE (06:50)
[2017-10-18] MEDS ORDERED: heparin 1,000 units/ml 10ml inj IV ONE (06:50)
[2017-10-18] MEDS ORDERED: albumin (human) 25% 100ml IV 100 ML IV PRN (06:50)
[2017-10-18 07:27] LABS: BASOPHILS % (AUTO) 0.9 % (0-1); EOSINOPHILS # (AUTO) 0.1 X10'3 (0-0.9); EOSINOPHILS % (AUTO) 2.7 % (0-6); HEMATOCRIT 29.8 % (42.0-52.0); HEMOGLOBIN 9.5 g/dl (14.0-17.9); LYMPHOCYTES % (AUTO) 18.3 % (21-51); MEAN CORPUSCULAR HEMOGLOBIN 26.4 PG (27.0-31.0); MEAN CORPUSCULAR HGB CONC 31.7 % (33.0-36.5); MEAN CORPUSCULAR VOLUME 83.3 FL (78-98); MEAN PLATELET VOLUME 8.4 FL (7.4-10.4); MONOCYTES # (AUTO) 0.3 X10'3 (0-0.9); MONOCYTES % (AUTO) 6.3 % (2-12); NEUTROPHILS # (AUTO) 3.9 X10'3 (1.8-7.7); NEUTROPHILS % (AUTO) 71.8 % (42-75); PLATELET COUNT 181 X10'3 (140-440); RED BLOOD COUNT 3.58 X10'6 (4.70-6.10); RED CELL DISTRIBUTION WIDTH 18.2 % (11.5-14.5); WHITE BLOOD COUNT 5.5 X10'3 (4.5-11.0)
[2017-10-18 08:00] VITALS: BP 122/58
[2017-10-18] MEDS ORDERED: LIDOcaine 1% (10mg/ml) 2ml vial SQ ONE (08:00)
[2017-10-18] MEDS: heparin, porcine 5000 units/ml vial SQ SCH ×2 (08:00→20:00)
[2017-10-18] MEDS: megestrol acetate 20mg tablet PO SCH (08:31)
[2017-10-18] MEDS: brimonidine 0.2% 5 ML ophthalmic drops RIGHTEYE SCH ×2 (08:31→20:00)
[2017-10-18] MEDS: predniSONE 5mg tablet PO SCH (08:31)
[2017-10-18] MEDS: zinc sulfate 220mg capsule PO SCH ×3 (08:32→21:00)
[2017-10-18] MEDS: sevelamer carbonate 800mg tablet PO SCH ×3 (08:32→16:56)
[2017-10-18] MEDS: losartan 25mg tablet PO SCH (08:32)
[2017-10-18] MEDS: multivitamin oral liquid (Certavite) 5ml cup PO SCH (08:32)
[2017-10-18] MEDS: cinacalcet 30mg tablet PO SCH (08:32)
[2017-10-18] MEDS: diphenhydrAMINE 25 MG/10 ML UD oral solution PO PRN (08:32)
[2017-10-18] MEDS: fluticasone nasal spray 16GM bottle NS SCH (08:33)
[2017-10-18] MEDS: cetirizine 10mg tablet PO SCH (08:33)
[2017-10-18] MEDS: oxyCODONE/APAP 5-325mg tablet PO PRN (09:43)
[2017-10-18 11:35] VITALS: BP 85/45
[2017-10-18] MEDS: insulin glargine (Lantus) pen - multi-dose SQ SCH (21:00)
[2017-10-18 23:00] VITALS: BP 104/49
[2017-10-19] MEDS: dextrose ORAL solution 15 GM/59 ML bottle PO PRN (06:45)
[2017-10-19] MEDS: sevelamer carbonate 800mg tablet PO SCH ×3 (07:30→16:34)
[2017-10-19] MEDS: fluticasone nasal spray 16GM bottle NS SCH (07:37)
[2017-10-19] MEDS: cinacalcet 30mg tablet PO SCH (07:38)
[2017-10-19] MEDS: cetirizine 10mg tablet PO SCH (07:38)
[2017-10-19] MEDS: zinc sulfate 220mg capsule PO SCH ×3 (07:38→20:23)
[2017-10-19] MEDS: heparin, porcine 5000 units/ml vial SQ SCH ×2 (07:38→20:00)
[2017-10-19] MEDS: megestrol acetate 20mg tablet PO SCH (07:38)
[2017-10-19] MEDS: losartan 25mg tablet PO SCH (07:38)
[2017-10-19] MEDS: multivitamin oral liquid (Certavite) 5ml cup PO SCH (07:38)
[2017-10-19] MEDS: brimonidine 0.2% 5 ML ophthalmic drops RIGHTEYE SCH ×2 (07:38→20:11)
[2017-10-19] MEDS: predniSONE 5mg tablet PO SCH (07:38)
[2017-10-19 09:44] VITALS: BP 93/55
[2017-10-19 10:58] VITALS: BP 87/51
[2017-10-19 18:00] VITALS: BP 86/51
[2017-10-19] MEDS: insulin glargine (Lantus) pen - multi-dose SQ SCH (21:00)
[2017-10-20 00:07] VITALS: BP 87/42
[2017-10-20 07:08] VITALS: BP 83/52
[2017-10-20] MEDS: sevelamer carbonate 800mg tablet PO SCH ×3 (07:30→16:54)
[2017-10-20] MEDS: brimonidine 0.2% 5 ML ophthalmic drops RIGHTEYE SCH ×3 (08:00→21:36)
[2017-10-20] MEDS: cinacalcet 30mg tablet PO SCH ×2 (08:00→10:02)
[2017-10-20] MEDS: fluticasone nasal spray 16GM bottle NS SCH ×2 (08:00→10:02)
[2017-10-20] MEDS: megestrol acetate 20mg tablet PO SCH ×2 (08:00→10:02)
[2017-10-20] MEDS: multivitamin oral liquid (Certavite) 5ml cup PO SCH ×2 (08:00→10:01)
[2017-10-20] MEDS: zinc sulfate 220mg capsule PO SCH ×3 (08:00→21:34)
[2017-10-20] MEDS: losartan 25mg tablet PO SCH (08:00)
[2017-10-20] MEDS: heparin, porcine 5000 units/ml vial SQ SCH ×3 (08:00→21:36)
[2017-10-20] MEDS: cetirizine 10mg tablet PO SCH ×2 (08:00→10:02)
[2017-10-20] MEDS: predniSONE 5mg tablet PO SCH ×2 (08:17→10:02)
[2017-10-20] MEDS ORDERED: heparin 1,000unit/ml 10ml vial 10 ML IV ONE (08:42)
[2017-10-20] MEDS ORDERED: albumin (human) 25% 100 ML IV solution IV ONE (08:45)
[2017-10-20] MEDS ORDERED: heparin 1,000 units/ml 10ml inj IV ONE (08:45)
[2017-10-20] MEDS ORDERED: albumin (human) 25% 100ml IV 100 ML IV PRN (08:45)
[2017-10-20] MEDS ORDERED: epoetin 20,000 units/ml inj IV ONE (08:45)
[2017-10-20 09:15] LABS: BASOPHILS % (AUTO) 0.5 % (0-1); EOSINOPHILS # (AUTO) 0.1 X10'3 (0-0.9); EOSINOPHILS % (AUTO) 2.3 % (0-6); HEMATOCRIT 30.4 % (42.0-52.0); HEMOGLOBIN 9.8 g/dl (14.0-17.9); LYMPHOCYTES % (AUTO) 18.5 % (21-51); MEAN CORPUSCULAR HEMOGLOBIN 26.7 PG (27.0-31.0); MEAN CORPUSCULAR HGB CONC 32.1 % (33.0-36.5); MEAN CORPUSCULAR VOLUME 83.4 FL (78-98); MEAN PLATELET VOLUME 8.2 FL (7.4-10.4); MONOCYTES # (AUTO) 0.4 X10'3 (0-0.9); MONOCYTES % (AUTO) 7.1 % (2-12); NEUTROPHILS % (AUTO) 71.6 % (42-75); PLATELET COUNT 200 X10'3 (140-440); RED BLOOD COUNT 3.65 X10'6 (4.70-6.10); RED CELL DISTRIBUTION WIDTH 18.1 % (11.5-14.5); WHITE BLOOD COUNT 5.6 X10'3 (4.5-11.0)
[2017-10-20] MEDS ORDERED: LIDOcaine 1% (10mg/ml) 2ml vial SQ ONE (09:15)
[2017-10-20 11:52] VITALS: BP 106/52
[2017-10-20 18:00] VITALS: BP 128/67
[2017-10-20] MEDS: insulin glargine (Lantus) pen - multi-dose SQ SCH (21:00)
[2017-10-21] VITALS: BP 116/56
[2017-10-21 07:00] VITALS: BP 108/61
[2017-10-21] MEDS: losartan 25mg tablet PO SCH (08:00)
[2017-10-21] MEDS: brimonidine 0.2% 5 ML ophthalmic drops RIGHTEYE SCH ×2 (08:00→21:14)
[2017-10-21] MEDS: fluticasone nasal spray 16GM bottle NS SCH (08:00)
[2017-10-21] MEDS ORDERED: diatrozoate meglu/diatrozoate sod (37% iodine) 120ML oral solution PO SCH (09:00)
[2017-10-21] MEDS: megestrol acetate 20mg tablet PO SCH (09:00)
[2017-10-21] MEDS: cetirizine 10mg tablet PO SCH (09:01)
[2017-10-21] MEDS: zinc sulfate 220mg capsule PO SCH ×3 (09:01→21:15)
[2017-10-21] MEDS: sevelamer carbonate 800mg tablet PO SCH ×3 (09:01→16:51)
[2017-10-21] MEDS: multivitamin oral liquid (Certavite) 5ml cup PO SCH (09:01)
[2017-10-21] MEDS: cinacalcet 30mg tablet PO SCH (09:01)
[2017-10-21] MEDS: predniSONE 5mg tablet PO SCH (09:02)
[2017-10-21] MEDS: heparin, porcine 5000 units/ml vial SQ SCH ×2 (09:10→21:11)
[2017-10-21 11:39] VITALS: BP 113/58
[2017-10-21 18:00] VITALS: BP 133/66
[2017-10-21] MEDS: insulin glargine (Lantus) pen - multi-dose SQ SCH (21:00)
[2017-10-22] VITALS: BP 138/74
[2017-10-22 07:09] VITALS: BP 122/78
[2017-10-22] MEDS: sevelamer carbonate 800mg tablet PO SCH ×3 (07:30→17:23)
[2017-10-22] MEDS: multivitamin oral liquid (Certavite) 5ml cup PO SCH (08:00)
[2017-10-22] MEDS: brimonidine 0.2% 5 ML ophthalmic drops RIGHTEYE SCH ×2 (08:00→20:16)
[2017-10-22] MEDS: fluticasone nasal spray 16GM bottle NS SCH (08:00)
[2017-10-22] MEDS: predniSONE 5mg tablet PO SCH (09:53)
[2017-10-22] MEDS: cinacalcet 30mg tablet PO SCH (09:54)
[2017-10-22] MEDS: megestrol acetate 20mg tablet PO SCH (09:54)
[2017-10-22] MEDS: zinc sulfate 220mg capsule PO SCH ×3 (09:54→20:16)
[2017-10-22] MEDS: losartan 25mg tablet PO SCH (09:54)
[2017-10-22] MEDS: heparin, porcine 5000 units/ml vial SQ SCH ×2 (09:55→20:16)
[2017-10-22] MEDS: cetirizine 10mg tablet PO SCH (09:55)
[2017-10-22 10:09] LABS: ALANINE AMINOTRANSFERASE 14 U/L (12-78); ALBUMIN 2.2 G/DL (3.4-5.0); ALBUMIN/GLOBULIN RATIO 0.5 (1.1-1.5); ALKALINE PHOSPHATASE 113 IU/L (46-116); ANION GAP 6 (8-16); ASPARTATE AMINO TRANSFERASE 47 U/L (10-37); BILIRUBIN,TOTAL 0.8 MG/DL (0.1-1.0); BLOOD UREA NITROGEN 23 MG/DL (7-18); BUN/CREATININE RATIO 4.8 (5.4-32.0); CALCIUM 8.9 MG/DL (8.5-10.1); CHLORIDE 99 MMOL/L (99-107); CREATININE 4.77 MG/DL (0.60-1.10); GLUCOSE 90 MG/DL (70-104); PHOSPHORUS 3.3 MG/DL (2.3-4.5); SODIUM 137 MMOL/L (135-145); TOTAL CARBON DIOXIDE 31.6 MMOL/L (24-32); eGFR 12 ML/MIN
[2017-10-22 11:44] VITALS: BP 127/68
[2017-10-22] MEDS: methylphenidate 5mg tablet PO SCH ×2 (12:30→17:23)
[2017-10-22 20:00] VITALS: BP 114/63
[2017-10-22] MEDS: insulin glargine (Lantus) pen - multi-dose SQ SCH (21:00)
[2017-10-22 23:30] VITALS: BP 127/66
[2017-10-23 06:43] VITALS: BP 114/62
[2017-10-23] MEDS: sevelamer carbonate 800mg tablet PO SCH ×3 (07:15→17:37)
[2017-10-23] MEDS: megestrol acetate 20mg tablet PO SCH (07:17)
[2017-10-23] MEDS: predniSONE 5mg tablet PO SCH (07:17)
[2017-10-23] MEDS: fluticasone nasal spray 16GM bottle NS SCH ×2 (07:17→07:46)
[2017-10-23] MEDS: zinc sulfate 220mg capsule PO SCH ×3 (07:18→20:35)
[2017-10-23] MEDS: cetirizine 10mg tablet PO SCH (07:18)
[2017-10-23] MEDS: losartan 25mg tablet PO SCH (07:18)
[2017-10-23] MEDS: methylphenidate 5mg tablet PO SCH ×3 (07:18→17:37)
[2017-10-23] MEDS: cinacalcet 30mg tablet PO SCH (07:18)
[2017-10-23] MEDS: multivitamin oral liquid (Certavite) 5ml cup PO SCH (07:18)
[2017-10-23] MEDS: brimonidine 0.2% 5 ML ophthalmic drops RIGHTEYE SCH ×2 (07:20→20:00)
[2017-10-23] MEDS: heparin, porcine 5000 units/ml vial SQ SCH ×2 (07:20→20:32)
[2017-10-23] MEDS ORDERED: albumin (human) 25% 100ml IV 100 ML IV PRN (09:00)
[2017-10-23] MEDS ORDERED: LIDOcaine 1% (10mg/ml) 2ml vial SQ ONE (09:00)
[2017-10-23] MEDS ORDERED: heparin 1,000 units/ml 10ml inj IV ONE (09:00)
[2017-10-23] MEDS ORDERED: epoetin 20,000 units/ml inj IV ONE (09:00)
[2017-10-23 11:16] LABS: BASOPHILS # (AUTO) 0.1 X10'3 (0-0.2); BASOPHILS % (AUTO) 0.8 % (0-1); EOSINOPHILS # (AUTO) 0.1 X10'3 (0-0.9); EOSINOPHILS % (AUTO) 1.8 % (0-6); HEMATOCRIT 29.1 % (42.0-52.0); HEMOGLOBIN 9.4 g/dl (14.0-17.9); LYMPHOCYTES # (AUTO) 0.6 X10'3 (1.1-4.8); MEAN CORPUSCULAR HEMOGLOBIN 26.7 PG (27.0-31.0); MEAN CORPUSCULAR HGB CONC 32.4 % (33.0-36.5); MEAN CORPUSCULAR VOLUME 82.4 FL (78-98); MEAN PLATELET VOLUME 8.3 FL (7.4-10.4); MONOCYTES # (AUTO) 0.2 X10'3 (0-0.9); MONOCYTES % (AUTO) 3.5 % (2-12); NEUTROPHILS # (AUTO) 5.9 X10'3 (1.8-7.7); NEUTROPHILS % (AUTO) 84.9 % (42-75); PLATELET COUNT 249 X10'3 (140-440); RED BLOOD COUNT 3.53 X10'6 (4.70-6.10); RED CELL DISTRIBUTION WIDTH 17.7 % (11.5-14.5); WHITE BLOOD COUNT 6.9 X10'3 (4.5-11.0)
[2017-10-23 11:39] VITALS: BP 115/62
[2017-10-23 20:00] VITALS: BP 109/60
[2017-10-23] MEDS: insulin glargine (Lantus) pen - multi-dose SQ SCH (20:35)
[2017-10-23 23:30] VITALS: BP 129/61
[2017-10-24 06:55] VITALS: BP 128/73
[2017-10-24] MEDS: sevelamer carbonate 800mg tablet PO SCH ×3 (07:37→17:31)
[2017-10-24] MEDS: brimonidine 0.2% 5 ML ophthalmic drops RIGHTEYE SCH ×2 (07:37→20:12)
[2017-10-24] MEDS: predniSONE 5mg tablet PO SCH (07:37)
[2017-10-24] MEDS: fluticasone nasal spray 16GM bottle NS SCH (07:37)
[2017-10-24] MEDS: methylphenidate 5mg tablet PO SCH ×3 (07:38→17:31)
[2017-10-24] MEDS: heparin, porcine 5000 units/ml vial SQ SCH ×2 (07:38→20:13)
[2017-10-24] MEDS: cetirizine 10mg tablet PO SCH (07:38)
[2017-10-24] MEDS: multivitamin oral liquid (Certavite) 5ml cup PO SCH (07:38)
[2017-10-24] MEDS: zinc sulfate 220mg capsule PO SCH ×3 (07:38→20:13)
[2017-10-24] MEDS: cinacalcet 30mg tablet PO SCH (07:38)
[2017-10-24] MEDS: losartan 25mg tablet PO SCH (07:38)
[2017-10-24 12:00] VITALS: BP 125/67
[2017-10-24] MEDS: megestrol acetate 20mg tablet PO SCH (14:23)
[2017-10-24 19:00] VITALS: BP 131/76
[2017-10-24] MEDS: insulin glargine (Lantus) pen - multi-dose SQ SCH (21:00)
[2017-10-24 23:30] VITALS: BP 128/73
[2017-10-25 07:04] VITALS: BP 158/82
[2017-10-25 07:06] VITALS: BP 109/65
[2017-10-25] MEDS: sevelamer carbonate 800mg tablet PO SCH ×3 (07:30→17:30)
[2017-10-25] MEDS: megestrol acetate 20mg tablet PO SCH (08:00)
[2017-10-25] MEDS: heparin, porcine 5000 units/ml vial SQ SCH ×2 (08:00→20:00)
[2017-10-25] MEDS ORDERED: normal saline 1000ml 250 ML IV PRN (09:03)
[2017-10-25] MEDS ORDERED: epoetin 20,000 units/ml inj IV ONE (09:05)
[2017-10-25] MEDS ORDERED: LIDOcaine 1% (10mg/ml) 2ml vial SQ ONE (09:05)
[2017-10-25] MEDS ORDERED: albumin (human) 25% 100ml IV 100 ML IV PRN (09:05)
[2017-10-25] MEDS ORDERED: heparin 1,000 units/ml 10ml inj IV ONE (09:05)
[2017-10-25 11:07] LABS: BASOPHILS % (AUTO) 0.3 % (0-1); EOSINOPHILS % (AUTO) 0.8 % (0-6); HEMATOCRIT 27.7 % (42.0-52.0); LYMPHOCYTES # (AUTO) 0.7 X10'3 (1.1-4.8); MEAN CORPUSCULAR HEMOGLOBIN 26.6 PG (27.0-31.0); MEAN CORPUSCULAR HGB CONC 32.4 % (33.0-36.5); MEAN CORPUSCULAR VOLUME 82.2 FL (78-98); MEAN PLATELET VOLUME 8.8 FL (7.4-10.4); MONOCYTES # (AUTO) 0.1 X10'3 (0-0.9); MONOCYTES % (AUTO) 1.8 % (2-12); NEUTROPHILS # (AUTO) 4.9 X10'3 (1.8-7.7); NEUTROPHILS % (AUTO) 85.1 % (42-75); PLATELET COUNT 272 X10'3 (140-440); RED BLOOD COUNT 3.37 X10'6 (4.70-6.10); RED CELL DISTRIBUTION WIDTH 17.1 % (11.5-14.5); WHITE BLOOD COUNT 5.8 X10'3 (4.5-11.0)
[2017-10-25] MEDS: losartan 25mg tablet PO SCH (11:37)
[2017-10-25] MEDS: multivitamin oral liquid (Certavite) 5ml cup PO SCH (11:37)
[2017-10-25] MEDS: zinc sulfate 220mg capsule PO SCH ×3 (11:37→21:00)
[2017-10-25] MEDS: cetirizine 10mg tablet PO SCH (11:38)
[2017-10-25] MEDS: cinacalcet 30mg tablet PO SCH (11:38)
[2017-10-25] MEDS: methylphenidate 5mg tablet PO SCH ×3 (11:38→17:30)
[2017-10-25] MEDS: predniSONE 5mg tablet PO SCH (11:39)
[2017-10-25] MEDS: brimonidine 0.2% 5 ML ophthalmic drops RIGHTEYE SCH ×2 (11:41→20:00)
[2017-10-25] MEDS: fluticasone nasal spray 16GM bottle NS SCH (11:48)
[2017-10-25 12:41] VITALS: BP 112/75
[2017-10-25 20:00] VITALS: BP 115/63
[2017-10-25] MEDS: insulin glargine (Lantus) pen - multi-dose SQ SCH (21:00)
[2017-10-26 07:26] VITALS: BP 143/71
[2017-10-26] MEDS: sevelamer carbonate 800mg tablet PO SCH ×3 (07:30→17:30)
[2017-10-26 07:31] VITALS: BP 126/79
[2017-10-26] MEDS: megestrol acetate 20mg tablet PO SCH (08:00)
[2017-10-26] MEDS: heparin, porcine 5000 units/ml vial SQ SCH ×2 (08:00→20:00)
[2017-10-26] MEDS: losartan 25mg tablet PO SCH (08:00)
[2017-10-26] MEDS: zinc sulfate 220mg capsule PO SCH ×3 (08:00→21:00)
[2017-10-26] MEDS: cinacalcet 30mg tablet PO SCH (08:00)
[2017-10-26] MEDS: brimonidine 0.2% 5 ML ophthalmic drops RIGHTEYE SCH ×2 (08:00→20:00)
[2017-10-26] MEDS: multivitamin oral liquid (Certavite) 5ml cup PO SCH (08:00)
[2017-10-26] MEDS: fluticasone nasal spray 16GM bottle NS SCH (08:00)
[2017-10-26] MEDS: cetirizine 10mg tablet PO SCH (08:00)
[2017-10-26] MEDS: methylphenidate 5mg tablet PO SCH ×3 (08:30→17:30)
[2017-10-26] MEDS: predniSONE 5mg tablet PO SCH (08:30)
[2017-10-26 14:30] VITALS: BP 108/40
[2017-10-26 19:30] VITALS: BP 129/58
[2017-10-26] MEDS: insulin glargine (Lantus) pen - multi-dose SQ SCH (21:00)
[2017-10-27 00:18] VITALS: BP 125/64
[2017-10-27 07:00] VITALS: BP 93/49
[2017-10-27 07:17] VITALS: BP 122/56
[2017-10-27] MEDS: sevelamer carbonate 800mg tablet PO SCH ×3 (07:30→17:53)
[2017-10-27] MEDS: cetirizine 10mg tablet PO SCH (08:00)
[2017-10-27] MEDS: zinc sulfate 220mg capsule PO SCH ×3 (08:00→20:54)
[2017-10-27] MEDS: fluticasone nasal spray 16GM bottle NS SCH (08:00)
[2017-10-27] MEDS: megestrol acetate 20mg tablet PO SCH (08:00)
[2017-10-27] MEDS: losartan 25mg tablet PO SCH (08:00)
[2017-10-27] MEDS: brimonidine 0.2% 5 ML ophthalmic drops RIGHTEYE SCH ×2 (08:00→20:00)
[2017-10-27] MEDS: multivitamin oral liquid (Certavite) 5ml cup PO SCH (08:00)
[2017-10-27] MEDS: cinacalcet 30mg tablet PO SCH (08:00)
[2017-10-27] MEDS: heparin, porcine 5000 units/ml vial SQ SCH ×2 (08:00→20:00)
[2017-10-27] MEDS: predniSONE 5mg tablet PO SCH (08:30)
[2017-10-27] MEDS: methylphenidate 5mg tablet PO SCH ×3 (08:30→17:51)
[2017-10-27] MEDS ORDERED: normal saline 1000ml 250 ML IV PRN (08:42)
[2017-10-27] MEDS ORDERED: LIDOcaine 1% (10mg/ml) 2ml vial SQ ONE (08:45)
[2017-10-27] MEDS ORDERED: epoetin 20,000 units/ml inj IV ONE ×2 (08:45→11:26)
[2017-10-27] MEDS ORDERED: heparin 1,000 units/ml 10ml inj IV ONE (08:45)
[2017-10-27 11:05] LABS: BASOPHILS # (AUTO) 0.3 X10'3 (0-0.2); BASOPHILS % (AUTO) 4.3 % (0-1); EOSINOPHILS # (AUTO) 0.1 X10'3 (0-0.9); EOSINOPHILS % (AUTO) 1.6 % (0-6); HEMOGLOBIN 9.3 g/dl (14.0-17.9); LYMPHOCYTES # (AUTO) 0.9 X10'3 (1.1-4.8); LYMPHOCYTES % (AUTO) 14.4 % (21-51); MEAN CORPUSCULAR HEMOGLOBIN 26.2 PG (27.0-31.0); MEAN CORPUSCULAR HGB CONC 32.1 % (33.0-36.5); MEAN CORPUSCULAR VOLUME 81.6 FL (78-98); MEAN PLATELET VOLUME 8.4 FL (7.4-10.4); MONOCYTES # (AUTO) 0.2 X10'3 (0-0.9); MONOCYTES % (AUTO) 2.8 % (2-12); NEUTROPHILS # (AUTO) 4.8 X10'3 (1.8-7.7); NEUTROPHILS % (AUTO) 76.9 % (42-75); RED BLOOD COUNT 3.56 X10'6 (4.70-6.10); RED CELL DISTRIBUTION WIDTH 17.5 % (11.5-14.5); WHITE BLOOD COUNT 6.2 X10'3 (4.5-11.0)
[2017-10-27 11:21] LABS: PLATELET COUNT 306 X10'3 (140-440)
[2017-10-27] MEDS: dextrose ORAL solution 15 GM/59 ML bottle PO PRN (17:51)
[2017-10-27 19:00] VITALS: BP 111/55
[2017-10-27] MEDS: insulin glargine (Lantus) pen - multi-dose SQ SCH (20:54)
[2017-10-28] VITALS: BP 118/68
[2017-10-28 07:00] VITALS: BP 110/57
[2017-10-28] MEDS: methylphenidate 5mg tablet PO SCH ×3 (08:54→17:30)
[2017-10-28] MEDS: heparin, porcine 5000 units/ml vial SQ SCH ×2 (08:54→19:55)
[2017-10-28] MEDS: fluticasone nasal spray 16GM bottle NS SCH (08:54)
[2017-10-28] MEDS: brimonidine 0.2% 5 ML ophthalmic drops RIGHTEYE SCH ×2 (08:54→19:55)
[2017-10-28] MEDS: multivitamin oral liquid (Certavite) 5ml cup PO SCH (08:54)
[2017-10-28] MEDS: cetirizine 10mg tablet PO SCH (08:55)
[2017-10-28] MEDS: zinc sulfate 220mg capsule PO SCH ×3 (08:55→21:00)
[2017-10-28] MEDS: sevelamer carbonate 800mg tablet PO SCH ×3 (08:55→17:30)
[2017-10-28] MEDS: cinacalcet 30mg tablet PO SCH (08:55)
[2017-10-28] MEDS: megestrol acetate 20mg tablet PO SCH (08:55)
[2017-10-28] MEDS: predniSONE 5mg tablet PO SCH (08:55)
[2017-10-28] MEDS: losartan 25mg tablet PO SCH (08:55)
[2017-10-28 11:00] VITALS: BP 109/64
[2017-10-28] MEDS: dextrose ORAL solution 15 GM/59 ML bottle PO PRN (12:26)
[2017-10-28 19:35] VITALS: BP 122/78
[2017-10-28] MEDS: insulin glargine (Lantus) pen - multi-dose SQ SCH (21:00)
[2017-10-29] VITALS: BP 107/66
[2017-10-29] MEDS: sevelamer carbonate 800mg tablet PO SCH ×3 (07:30→17:30)
[2017-10-29 07:53] VITALS: BP 110/62
[2017-10-29] MEDS: brimonidine 0.2% 5 ML ophthalmic drops RIGHTEYE SCH ×2 (08:00→20:00)
[2017-10-29] MEDS: fluticasone nasal spray 16GM bottle NS SCH (08:00)
[2017-10-29] MEDS: cetirizine 10mg tablet PO SCH (08:00)
[2017-10-29] MEDS: cinacalcet 30mg tablet PO SCH (08:00)
[2017-10-29] MEDS: multivitamin oral liquid (Certavite) 5ml cup PO SCH (08:00)
[2017-10-29] MEDS: losartan 25mg tablet PO SCH (08:00)
[2017-10-29] MEDS: heparin, porcine 5000 units/ml vial SQ SCH ×2 (08:00→20:00)
[2017-10-29] MEDS: zinc sulfate 220mg capsule PO SCH ×3 (08:00→21:00)
[2017-10-29] MEDS: megestrol acetate 20mg tablet PO SCH (08:00)
[2017-10-29] MEDS ORDERED: normal saline 1000ml 250 ML IV PRN (08:29)
[2017-10-29] MEDS ORDERED: epoetin 20,000 units/ml inj IV ONE (08:30)
[2017-10-29] MEDS: predniSONE 5mg tablet PO SCH (08:30)
[2017-10-29] MEDS: methylphenidate 5mg tablet PO SCH ×3 (08:30→17:30)
[2017-10-29] MEDS ORDERED: albumin (human) 25% 100ml IV 100 ML IV PRN (08:30)
[2017-10-29] MEDS ORDERED: heparin 1,000 units/ml 10ml inj IV ONE (08:30)
[2017-10-29] MEDS ORDERED: LIDOcaine 1% (10mg/ml) 2ml vial SQ ONE (08:30)
[2017-10-29 10:40] LABS: BASOPHILS # (AUTO) 0.1 X10'3 (0-0.2); BASOPHILS % (AUTO) 1.1 % (0-1); EOSINOPHILS # (AUTO) 0.2 X10'3 (0-0.9); EOSINOPHILS % (AUTO) 2.1 % (0-6); HEMATOCRIT 27.7 % (42.0-52.0); HEMOGLOBIN 8.9 g/dl (14.0-17.9); LYMPHOCYTES % (AUTO) 11.6 % (21-51); MEAN CORPUSCULAR HEMOGLOBIN 26.1 PG (27.0-31.0); MEAN CORPUSCULAR HGB CONC 32.1 % (33.0-36.5); MEAN CORPUSCULAR VOLUME 81.3 FL (78-98); MEAN PLATELET VOLUME 8.1 FL (7.4-10.4); MONOCYTES # (AUTO) 0.4 X10'3 (0-0.9); MONOCYTES % (AUTO) 4.4 % (2-12); NEUTROPHILS % (AUTO) 80.8 % (42-75); PLATELET COUNT 281 X10'3 (140-440); RED BLOOD COUNT 3.41 X10'6 (4.70-6.10); RED CELL DISTRIBUTION WIDTH 17.6 % (11.5-14.5); WHITE BLOOD COUNT 8.7 X10'3 (4.5-11.0)
[2017-10-29 10:54] LABS: ALANINE AMINOTRANSFERASE 11 U/L (12-78); ALBUMIN 1.9 G/DL (3.4-5.0); ALBUMIN/GLOBULIN RATIO 0.4 (1.1-1.5); ALKALINE PHOSPHATASE 108 IU/L (46-116); ASPARTATE AMINO TRANSFERASE 19 U/L (10-37); BILIRUBIN,TOTAL 0.7 MG/DL (0.1-1.0); BLOOD UREA NITROGEN 21 MG/DL (7-18); BUN/CREATININE RATIO 4.8 (5.4-32.0); CREATININE 4.33 MG/DL (0.60-1.10); GLUCOSE 105 MG/DL (70-104); TOTAL PROTEIN 6.6 G/DL (6.4-8.2); eGFR 14 ML/MIN
[2017-10-29 11:00] VITALS: BP 135/72
[2017-10-29 11:01] LABS: ANION GAP 7 (8-16); CALCIUM 8.4 MG/DL (8.5-10.1); CHLORIDE 102 MMOL/L (99-107); POTASSIUM 3.8 MMOL/L (3.5-5.1); SODIUM 138 MMOL/L (135-145)
[2017-10-29 20:00] VITALS: BP 125/68
[2017-10-29] MEDS: insulin glargine (Lantus) pen - multi-dose SQ SCH (21:00)
[2017-10-30 07:29] VITALS: BP 144/82
[2017-10-30] MEDS: sevelamer carbonate 800mg tablet PO SCH ×3 (07:30→17:30)
[2017-10-30] MEDS: cetirizine 10mg tablet PO SCH (08:00)
[2017-10-30] MEDS: zinc sulfate 220mg capsule PO SCH ×3 (08:00→21:00)
[2017-10-30] MEDS: heparin, porcine 5000 units/ml vial SQ SCH ×2 (08:00→20:00)
[2017-10-30] MEDS: brimonidine 0.2% 5 ML ophthalmic drops RIGHTEYE SCH ×2 (08:00→20:00)
[2017-10-30] MEDS: megestrol acetate 20mg tablet PO SCH (08:00)
[2017-10-30] MEDS: multivitamin oral liquid (Certavite) 5ml cup PO SCH (08:00)
[2017-10-30] MEDS: cinacalcet 30mg tablet PO SCH (08:00)
[2017-10-30] MEDS: losartan 25mg tablet PO SCH (08:00)
[2017-10-30] MEDS: fluticasone nasal spray 16GM bottle NS SCH (08:00)
[2017-10-30] MEDS: predniSONE 5mg tablet PO SCH (08:30)
[2017-10-30] MEDS: methylphenidate 5mg tablet PO SCH ×3 (08:30→17:30)
[2017-10-30 11:31] VITALS: BP 138/77
[2017-10-30 20:00] VITALS: BP 117/77
[2017-10-30] MEDS: insulin glargine (Lantus) pen - multi-dose SQ SCH (21:00)
[2017-10-31] VITALS: BP 159/65
[2017-10-31 07:21] VITALS: BP 107/59
[2017-10-31] MEDS: sevelamer carbonate 800mg tablet PO SCH ×3 (07:30→16:29)
[2017-10-31] MEDS: fluticasone nasal spray 16GM bottle NS SCH (08:00)
[2017-10-31] MEDS: zinc sulfate 220mg capsule PO SCH ×3 (08:00→21:00)
[2017-10-31] MEDS: multivitamin oral liquid (Certavite) 5ml cup PO SCH (08:00)
[2017-10-31] MEDS: heparin, porcine 5000 units/ml vial SQ SCH ×2 (08:00→20:00)
[2017-10-31] MEDS: brimonidine 0.2% 5 ML ophthalmic drops RIGHTEYE SCH ×2 (08:00→20:00)
[2017-10-31] MEDS: megestrol acetate 20mg tablet PO SCH (08:00)
[2017-10-31] MEDS: losartan 25mg tablet PO SCH (08:00)
[2017-10-31] MEDS: predniSONE 5mg tablet PO SCH (08:30)
[2017-10-31] MEDS: methylphenidate 5mg tablet PO SCH ×3 (08:30→16:30)
[2017-10-31] MEDS: cinacalcet 30mg tablet PO SCH (09:27)
[2017-10-31] MEDS: cetirizine 10mg tablet PO SCH (09:30)
[2017-10-31 10:55] VITALS: BP 97/51
[2017-10-31 20:00] VITALS: BP 106/52
[2017-10-31] MEDS: insulin glargine (Lantus) pen - multi-dose SQ SCH (21:00)
[2017-10-31] MEDS: diphenhydrAMINE 25 MG/10 ML UD oral solution PO PRN (23:04)
[2017-11-01] VITALS: BP 106/57
[2017-11-01 05:46] LABS: BASOPHILS % (AUTO) 0.4 % (0-1); EOSINOPHILS # (AUTO) 0.3 X10'3 (0-0.9); EOSINOPHILS % (AUTO) 2.8 % (0-6); HEMATOCRIT 29.4 % (42.0-52.0); HEMOGLOBIN 9.6 g/dl (14.0-17.9); LYMPHOCYTES # (AUTO) 0.9 X10'3 (1.1-4.8); LYMPHOCYTES % (AUTO) 8.7 % (21-51); MEAN CORPUSCULAR HEMOGLOBIN 27.1 PG (27.0-31.0); MEAN CORPUSCULAR HGB CONC 32.5 % (33.0-36.5); MEAN CORPUSCULAR VOLUME 83.3 FL (78-98); MEAN PLATELET VOLUME 8.4 FL (7.4-10.4); MONOCYTES # (AUTO) 0.7 X10'3 (0-0.9); MONOCYTES % (AUTO) 6.5 % (2-12); NEUTROPHILS # (AUTO) 8.9 X10'3 (1.8-7.7); NEUTROPHILS % (AUTO) 81.6 % (42-75); PLATELET COUNT 247 X10'3 (140-440); RED BLOOD COUNT 3.53 X10'6 (4.70-6.10)
[2017-11-01 06:18] LABS: ALANINE AMINOTRANSFERASE 9 U/L (12-78); ALBUMIN 1.9 G/DL (3.4-5.0); ALBUMIN/GLOBULIN RATIO 0.4 (1.1-1.5); ALKALINE PHOSPHATASE 126 IU/L (46-116); ANION GAP 10 (8-16); ASPARTATE AMINO TRANSFERASE 20 U/L (10-37); BILIRUBIN,TOTAL 0.9 MG/DL (0.1-1.0); BLOOD UREA NITROGEN 28 MG/DL (7-18); BUN/CREATININE RATIO 5.1 (5.4-32.0); CALCIUM 8.8 MG/DL (8.5-10.1); CHLORIDE 102 MMOL/L (99-107); CREATININE 5.49 MG/DL (0.60-1.10); GLUCOSE 55 MG/DL (70-104); PHOSPHORUS 3.2 MG/DL (2.3-4.5); SODIUM 140 MMOL/L (135-145); TOTAL CARBON DIOXIDE 28.5 MMOL/L (24-32); TOTAL PROTEIN 6.9 G/DL (6.4-8.2); eGFR 10 ML/MIN
[2017-11-01] MEDS: sevelamer carbonate 800mg tablet PO SCH ×3 (07:30→17:30)
[2017-11-01 07:35] VITALS: BP 119/91
[2017-11-01] MEDS ORDERED: LIDOcaine 1% (10mg/ml) 2ml vial SQ ONE (08:00)
[2017-11-01] MEDS: brimonidine 0.2% 5 ML ophthalmic drops RIGHTEYE SCH ×2 (08:00→20:00)
[2017-11-01] MEDS: cetirizine 10mg tablet PO SCH (08:00)
[2017-11-01] MEDS ORDERED: epoetin 20,000 units/ml inj IV ONE (08:00)
[2017-11-01] MEDS: multivitamin oral liquid (Certavite) 5ml cup PO SCH (08:00)
[2017-11-01] MEDS: megestrol acetate 20mg tablet PO SCH (08:00)
[2017-11-01] MEDS ORDERED: normal saline 1000ml 250 ML IV PRN (08:00)
[2017-11-01] MEDS: zinc sulfate 220mg capsule PO SCH ×3 (08:00→21:00)
[2017-11-01] MEDS: cinacalcet 30mg tablet PO SCH (08:00)
[2017-11-01] MEDS: losartan 25mg tablet PO SCH (08:00)
[2017-11-01] MEDS ORDERED: heparin 1,000 units/ml 10ml inj IV ONE (08:00)
[2017-11-01] MEDS: fluticasone nasal spray 16GM bottle NS SCH (08:00)
[2017-11-01] MEDS: heparin, porcine 5000 units/ml vial SQ SCH ×2 (08:00→20:00)
[2017-11-01] MEDS: predniSONE 5mg tablet PO SCH (08:30)
[2017-11-01] MEDS: methylphenidate 5mg tablet PO SCH ×3 (08:30→17:30)
[2017-11-01 11:50] VITALS: BP 103/41
[2017-11-01] MEDS: piperacillin-tazo 2.25gm/50ml 50 ML IV SCH ×2 (17:20→20:00)
[2017-11-01] MEDS ORDERED: vancomycin/NS 1 GM ADD-VANTAGE 250 ML IV PRN (17:20)
[2017-11-01] MEDS ORDERED: vancomycin/NS 1 GM ADD-VANTAGE 250 ML IV ONE (17:27)
[2017-11-01 19:00] VITALS: BP 89/53
[2017-11-01] MEDS: insulin glargine (Lantus) pen - multi-dose SQ SCH (22:59)
[2017-11-01 23:30] VITALS: BP 78/42
[2017-11-02] VITALS (15 sets, daily range): BP systolic 69–169; BP diastolic 37–100
[2017-11-02] MEDS: piperacillin-tazo 2.25gm/50ml 50 ML IV SCH ×4 (02:16→20:00)
[2017-11-02] MEDS: VANCOMYCIN LEVEL IV SCH (02:26)
[2017-11-02] MEDS: sevelamer carbonate 800mg tablet PO SCH ×3 (07:30→17:30)
[2017-11-02 07:42] LABS: ALBUMIN 1.8 G/DL (3.4-5.0); ANION GAP 8 (8-16); BLOOD UREA NITROGEN 12 MG/DL (7-18); BUN/CREATININE RATIO 3.8 (5.4-32.0); CALCIUM 9.1 MG/DL (8.5-10.1); CHLORIDE 103 MMOL/L (99-107); CREATININE 3.17 MG/DL (0.60-1.10); GLUCOSE 74 MG/DL (70-104); POTASSIUM 3.7 MMOL/L (3.5-5.1); SODIUM 141 MMOL/L (135-145); TOTAL CARBON DIOXIDE 30.3 MMOL/L (24-32); VANCOMYCIN,RANDOM 26.5 UG/ML; eGFR 20 ML/MIN
[2017-11-02] MEDS: cetirizine 10mg tablet PO SCH (08:00)
[2017-11-02] MEDS: zinc sulfate 220mg capsule PO SCH ×3 (08:00→20:37)
[2017-11-02] MEDS: losartan 25mg tablet PO SCH (08:00)
[2017-11-02] MEDS: heparin, porcine 5000 units/ml vial SQ SCH ×2 (08:00→20:36)
[2017-11-02] MEDS: cinacalcet 30mg tablet PO SCH (08:00)
[2017-11-02] MEDS: multivitamin oral liquid (Certavite) 5ml cup PO SCH (08:00)
[2017-11-02] MEDS: brimonidine 0.2% 5 ML ophthalmic drops RIGHTEYE SCH ×2 (08:00→20:35)
[2017-11-02] MEDS: fluticasone nasal spray 16GM bottle NS SCH (08:00)
[2017-11-02] MEDS: megestrol acetate 20mg tablet PO SCH (08:00)
[2017-11-02] MEDS: methylphenidate 5mg tablet PO SCH ×3 (08:05→17:30)
[2017-11-02] MEDS: predniSONE 5mg tablet PO SCH (08:05)
[2017-11-02] MEDS: polyvinyl alcohol ophthalmic drops 15ml bottle EACHEYE PRN (12:41)
[2017-11-02] MEDS ORDERED: LIDOcaine 2% 5ml jelly TOP ONE (13:40)
[2017-11-02] MEDS: lactobacillus rhamnosus 10,000 MMU CELLS/CAPSULE PO SCH (17:13)
[2017-11-02] MEDS ORDERED: ringers solution, lacted 1,000 ML IV SCH (17:29)
[2017-11-02] MEDS ORDERED: morphine sulfate 8 MG/ML SYRINGE IV PRN (17:30)
[2017-11-02] MEDS ORDERED: fentaNYL/PF 50MCG/1 ML 2ML syringe IV PRN ×2 (17:30)
[2017-11-02] MEDS ORDERED: proCHLORperazine 10 MG/2 ml inj IV PRN (17:30)
[2017-11-02] MEDS ORDERED: meperidine/PF 25mg/ml syringe IV ONE (17:30)
[2017-11-02] MEDS ORDERED: ondansetron/PF 4mg/2ml inj IV PRN (17:30)
[2017-11-02] MEDS ORDERED: dextrose 50%-water 50ml dispensing syringe IV ONE (18:14)
[2017-11-02] MEDS ORDERED: desflurane 240ml liquid inh. IH ONE (18:14)
[2017-11-02] MEDS ORDERED: fentaNYL/PF 50MCG/1 ML 2ML syringe ONE (18:24)
[2017-11-02] MEDS ORDERED: midazolam 2 mg/2 ml injection ONE (18:25)
[2017-11-02] MEDS ORDERED: LIDOcaine 2% 5ml jelly ONE (18:25)
[2017-11-02] MEDS ORDERED: rocuronium 10mg/ml inj IV ONE (18:52)
[2017-11-02] MEDS ORDERED: ePHEDrine 50MG/ML INJ. ONE (18:52)
[2017-11-02] MEDS ORDERED: propofol inj 20 ML IV ONE (18:52)
[2017-11-02] MEDS ORDERED: LIDOcaine 2% (20mg/ml) 5ml vial ONE (18:52)
[2017-11-02] MEDS: insulin glargine (Lantus) pen - multi-dose SQ SCH (21:00)
[2017-11-03] VITALS: BP 106/60
[2017-11-03] MEDS: piperacillin-tazo 2.25gm/50ml 50 ML IV SCH ×5 (02:31→20:34)
[2017-11-03] MEDS: VANCOMYCIN LEVEL IV SCH (03:00)
[2017-11-03 04:00] VITALS: BP 114/75
[2017-11-03 06:00] LABS: BASOPHILS % (AUTO) 0.5 % (0-1); EOSINOPHILS # (AUTO) 0.1 X10'3 (0-0.9); EOSINOPHILS % (AUTO) 1.3 % (0-6); HEMATOCRIT 28.6 % (42.0-52.0); HEMOGLOBIN 9.1 g/dl (14.0-17.9); LYMPHOCYTES # (AUTO) 0.8 X10'3 (1.1-4.8); LYMPHOCYTES % (AUTO) 9.8 % (21-51); MEAN CORPUSCULAR HEMOGLOBIN 26.1 PG (27.0-31.0); MEAN CORPUSCULAR HGB CONC 31.8 % (33.0-36.5); MEAN CORPUSCULAR VOLUME 82.1 FL (78-98); MEAN PLATELET VOLUME 8.8 FL (7.4-10.4); MONOCYTES # (AUTO) 0.4 X10'3 (0-0.9); MONOCYTES % (AUTO) 4.5 % (2-12); NEUTROPHILS # (AUTO) 6.9 X10'3 (1.8-7.7); NEUTROPHILS % (AUTO) 83.9 % (42-75); PLATELET COUNT 194 X10'3 (140-440); RED BLOOD COUNT 3.49 X10'6 (4.70-6.10); RED CELL DISTRIBUTION WIDTH 17.9 % (11.5-14.5); WHITE BLOOD COUNT 8.3 X10'3 (4.5-11.0)
[2017-11-03 06:26] LABS: ALBUMIN 1.7 G/DL (3.4-5.0); ANION GAP 9 (8-16); BLOOD UREA NITROGEN 19 MG/DL (7-18); BUN/CREATININE RATIO 4.6 (5.4-32.0); CALCIUM 9.1 MG/DL (8.5-10.1); CHLORIDE 101 MMOL/L (99-107); CREATININE 4.12 MG/DL (0.60-1.10); GLUCOSE 176 MG/DL (70-104); POTASSIUM 3.8 MMOL/L (3.5-5.1); SODIUM 140 MMOL/L (135-145); TOTAL CARBON DIOXIDE 30.3 MMOL/L (24-32); VANCOMYCIN,RANDOM 23.6 UG/ML; eGFR 14 ML/MIN
[2017-11-03 07:01] VITALS: BP 125/65
[2017-11-03] MEDS: sevelamer carbonate 800mg tablet PO SCH ×3 (07:30→16:38)
[2017-11-03] MEDS: multivitamin oral liquid (Certavite) 5ml cup PO SCH (08:00)
[2017-11-03] MEDS ORDERED: heparin 1,000 units/ml 10ml inj IV ONE (08:00)
[2017-11-03] MEDS ORDERED: epoetin 20,000 units/ml inj IV ONE (08:00)
[2017-11-03] MEDS ORDERED: LIDOcaine 1% (10mg/ml) 2ml vial SQ ONE (08:00)
[2017-11-03] MEDS ORDERED: normal saline 1000ml 250 ML IV PRN (08:00)
[2017-11-03] MEDS: cetirizine 10mg tablet PO SCH (08:00)
[2017-11-03] MEDS: methylphenidate 5mg tablet PO SCH ×3 (08:30→16:38)
[2017-11-03] MEDS: brimonidine 0.2% 5 ML ophthalmic drops RIGHTEYE SCH ×2 (09:31→20:33)
[2017-11-03] MEDS: predniSONE 5mg tablet PO SCH (09:31)
[2017-11-03] MEDS: heparin, porcine 5000 units/ml vial SQ SCH ×2 (09:31→20:33)
[2017-11-03] MEDS: losartan 25mg tablet PO SCH (09:34)
[2017-11-03] MEDS: zinc sulfate 220mg capsule PO SCH ×3 (09:34→20:32)
[2017-11-03] MEDS: fluticasone nasal spray 16GM bottle NS SCH (09:34)
[2017-11-03] MEDS: lactobacillus rhamnosus 10,000 MMU CELLS/CAPSULE PO SCH ×2 (09:34→16:39)
[2017-11-03] MEDS: cinacalcet 30mg tablet PO SCH (09:34)
[2017-11-03] MEDS: megestrol acetate 20mg tablet PO SCH (09:36)
[2017-11-03 11:00] VITALS: BP 129/87
[2017-11-03] MEDS: oxyCODONE/APAP 5-325mg tablet PO PRN ×2 (11:46→20:31)
[2017-11-03 18:00] VITALS: BP 106/72
[2017-11-03] MEDS: insulin glargine (Lantus) pen - multi-dose SQ SCH (21:00)
[2017-11-04] VITALS: BP 102/64
[2017-11-04] MEDS: piperacillin-tazo 2.25gm/50ml 50 ML IV SCH ×2 (02:18→10:13)
[2017-11-04] MEDS: VANCOMYCIN LEVEL IV SCH (03:00)
[2017-11-04 05:40] LABS: ALBUMIN 1.6 G/DL (3.4-5.0); ANION GAP 7 (8-16); BLOOD UREA NITROGEN 12 MG/DL (7-18); BUN/CREATININE RATIO 4.8 (5.4-32.0); CHLORIDE 102 MMOL/L (99-107); CREATININE 2.52 MG/DL (0.60-1.10); GLUCOSE 169 MG/DL (70-104); POTASSIUM 4.8 MMOL/L (3.5-5.1); SODIUM 139 MMOL/L (135-145); TOTAL CARBON DIOXIDE 29.7 MMOL/L (24-32); VANCOMYCIN,RANDOM 20.3 UG/ML; eGFR 25 ML/MIN
[2017-11-04 07:45] LABS: ABG BASE EXCESS 2.3 mmol/L (-2.0-3.0); ABG HCO3 23.9 mmol/L (22.0-26.0); ABG OXYGEN SATURATION 98.9 % (95-98); ABG PCO2 (T) 27.4 mmHg (35.0-48.0); ABG PH (T) 7.558 (7.350-7.450); FCOHb 0.3 % (0.5-1.5); FLOW 2 L/min; FO2Hb 98.6 % (94-100); TOTAL HEMOGLOBIN 10.6 G/dl (14.0-18.0)
[2017-11-04 08:00] VITALS: BP_SYST 120
[2017-11-04 09:02] LABS: BASOPHILS # (AUTO) 0.1 X10'3 (0-0.2); EOSINOPHILS # (AUTO) 0.2 X10'3 (0-0.9); EOSINOPHILS % (AUTO) 1.7 % (0-6); HEMATOCRIT 34.3 % (42.0-52.0); HEMOGLOBIN 10.9 g/dl (14.0-17.9); LYMPHOCYTES # (AUTO) 1.3 X10'3 (1.1-4.8); LYMPHOCYTES % (AUTO) 12.1 % (21-51); MEAN CORPUSCULAR HGB CONC 31.8 % (33.0-36.5); MEAN CORPUSCULAR VOLUME 81.8 FL (78-98); MONOCYTES # (AUTO) 0.5 X10'3 (0-0.9); MONOCYTES % (AUTO) 5.1 % (2-12); NEUTROPHILS # (AUTO) 8.3 X10'3 (1.8-7.7); NEUTROPHILS % (AUTO) 80.1 % (42-75); PLATELET COUNT 178 X10'3 (140-440); RED CELL DISTRIBUTION WIDTH 17.6 % (11.5-14.5); WHITE BLOOD COUNT 10.4 X10'3 (4.5-11.0)
[2017-11-04] MEDS: megestrol acetate 20mg tablet PO SCH (10:07)
[2017-11-04] MEDS: sevelamer carbonate 800mg tablet PO SCH (10:07)
[2017-11-04] MEDS: losartan 25mg tablet PO SCH (10:08)
[2017-11-04] MEDS: predniSONE 5mg tablet PO SCH (10:08)
[2017-11-04] MEDS: methylphenidate 5mg tablet PO SCH ×3 (10:12→17:30)
[2017-11-04] MEDS: cinacalcet 30mg tablet PO SCH (10:12)
[2017-11-04] MEDS: zinc sulfate 220mg capsule PO SCH (10:12)
[2017-11-04] MEDS: heparin, porcine 5000 units/ml vial SQ SCH (10:13)
[2017-11-04] MEDS: brimonidine 0.2% 5 ML ophthalmic drops RIGHTEYE SCH (10:13)
[2017-11-04] MEDS: lactobacillus rhamnosus 10,000 MMU CELLS/CAPSULE PO SCH (10:13)
[2017-11-04] MEDS: fluticasone nasal spray 16GM bottle NS SCH (10:13)
[2017-11-04] MEDS: multivitamin oral liquid (Certavite) 5ml cup PO SCH (10:14)
[2017-11-04] MEDS: cetirizine 10mg tablet PO SCH (11:12)
[2017-11-04 18:00] VITALS: BP 155/101
[2017-11-04] MEDS: oxyCODONE/APAP 5-325mg tablet PO PRN (20:34)
[2017-11-04] MEDS ORDERED: LORazepam 2 mg/ml vial IV PRN (21:05)
[2017-11-05] MEDS: brimonidine 0.2% 5 ML ophthalmic drops RIGHTEYE SCH ×3 (00:51→20:04)
[2017-11-05] MEDS: fluticasone nasal spray 16GM bottle NS SCH (08:00)
[2017-11-05] MEDS: cetirizine 10mg tablet PO SCH (08:00)
[2017-11-05 08:15] VITALS: BP 135/75
[2017-11-05] MEDS: methylphenidate 5mg tablet PO SCH ×3 (08:30→17:30)
[2017-11-05 19:00] VITALS: BP 128/107
[2017-11-06] MEDS: cetirizine 10mg tablet PO SCH (08:00)
[2017-11-06] MEDS: brimonidine 0.2% 5 ML ophthalmic drops RIGHTEYE SCH ×2 (08:00→19:33)
[2017-11-06] MEDS: fluticasone nasal spray 16GM bottle NS SCH (08:00)
[2017-11-06] MEDS: methylphenidate 5mg tablet PO SCH ×3 (08:30→17:30)
[2017-11-06 11:00] VITALS: BP 145/66
[2017-11-06] MEDS: oxyCODONE/APAP 5-325mg tablet PO PRN (17:09)
[2017-11-06 19:00] VITALS: BP 118/106
[2017-11-07] MEDS: brimonidine 0.2% 5 ML ophthalmic drops RIGHTEYE SCH ×2 (08:00→19:24)
[2017-11-07] MEDS: fluticasone nasal spray 16GM bottle NS SCH (08:00)
[2017-11-07] MEDS: cetirizine 10mg tablet PO SCH (08:00)
[2017-11-07] MEDS: methylphenidate 5mg tablet PO SCH ×3 (08:30→17:30)
[2017-11-07] MEDS: oxyCODONE/APAP 5-325mg tablet PO PRN (15:45)
[2017-11-07 19:00] VITALS: BP 159/78
[2017-11-08 07:00] VITALS: BP 132/88
[2017-11-08] MEDS: cetirizine 10mg tablet PO SCH (08:00)
[2017-11-08] MEDS: fluticasone nasal spray 16GM bottle NS SCH (08:00)
[2017-11-08] MEDS: brimonidine 0.2% 5 ML ophthalmic drops RIGHTEYE SCH ×2 (08:00→20:00)
[2017-11-08] MEDS: methylphenidate 5mg tablet PO SCH ×3 (08:30→17:30)
[2017-11-08 12:00] VITALS: BP 158/94
[2017-11-08 20:00] VITALS: BP 136/72
[2017-11-09] MEDS: brimonidine 0.2% 5 ML ophthalmic drops RIGHTEYE SCH ×2 (07:23→20:00)
[2017-11-09] MEDS: cetirizine 10mg tablet PO SCH (07:23)
[2017-11-09] MEDS: fluticasone nasal spray 16GM bottle NS SCH (07:24)
[2017-11-09 08:00] VITALS: BP 164/73
[2017-11-09] MEDS: methylphenidate 5mg tablet PO SCH ×3 (08:30→17:53)
[2017-11-10 07:25] VITALS: BP 137/56
[2017-11-10] MEDS: cetirizine 10mg tablet PO SCH (09:01)
[2017-11-10] MEDS: methylphenidate 5mg tablet PO SCH ×3 (09:01→17:33)
[2017-11-10] MEDS: brimonidine 0.2% 5 ML ophthalmic drops RIGHTEYE SCH ×2 (09:02→20:00)
[2017-11-10] MEDS: fluticasone nasal spray 16GM bottle NS SCH (09:03)
[2017-11-10 18:00] VITALS: BP 107/82
[2017-11-11 07:19] VITALS: BP 187/90
[2017-11-11] MEDS: methylphenidate 5mg tablet PO SCH ×3 (08:10→16:58)
[2017-11-11] MEDS: cetirizine 10mg tablet PO SCH (08:10)
[2017-11-11] MEDS: brimonidine 0.2% 5 ML ophthalmic drops RIGHTEYE SCH ×2 (08:10→21:30)
[2017-11-11] MEDS: fluticasone nasal spray 16GM bottle NS SCH (08:10)
[2017-11-11] MEDS: oxyCODONE/APAP 5-325mg tablet PO PRN ×2 (08:12→19:28)
[2017-11-11 19:00] VITALS: BP 120/64
[2017-11-12 08:00] VITALS: BP 122/61
[2017-11-12] MEDS: cetirizine 10mg tablet PO SCH (08:43)
[2017-11-12] MEDS: fluticasone nasal spray 16GM bottle NS SCH (08:43)
[2017-11-12] MEDS: methylphenidate 5mg tablet PO SCH ×3 (08:43→17:08)
[2017-11-12] MEDS: brimonidine 0.2% 5 ML ophthalmic drops RIGHTEYE SCH ×2 (11:03→21:41)
[2017-11-12 19:00] VITALS: BP 98/61
[2017-11-13 07:09] VITALS: BP 87/41
[2017-11-13] MEDS: fluticasone nasal spray 16GM bottle NS SCH (08:00)
[2017-11-13] MEDS: cetirizine 10mg tablet PO SCH (08:00)
[2017-11-13] MEDS: methylphenidate 5mg tablet PO SCH ×3 (08:30→17:30)
[2017-11-13] MEDS: brimonidine 0.2% 5 ML ophthalmic drops RIGHTEYE SCH ×2 (08:52→20:17)
[2017-11-13 19:30] VITALS: BP 104/45
[2017-11-14 07:46] VITALS: BP 127/61
[2017-11-14] MEDS: cetirizine 10mg tablet PO SCH (08:00)
[2017-11-14] MEDS: fluticasone nasal spray 16GM bottle NS SCH (08:00)
[2017-11-14] MEDS: methylphenidate 5mg tablet PO SCH ×3 (08:30→17:07)
[2017-11-14] MEDS: brimonidine 0.2% 5 ML ophthalmic drops RIGHTEYE SCH ×2 (09:06→20:09)
[2017-11-15 07:00] VITALS: BP 92/58
[2017-11-15] MEDS: fluticasone nasal spray 16GM bottle NS SCH (08:00)
[2017-11-15] MEDS: cetirizine 10mg tablet PO SCH (08:00)
[2017-11-15] MEDS: brimonidine 0.2% 5 ML ophthalmic drops RIGHTEYE SCH ×2 (08:15→20:00)
[2017-11-15] MEDS: methylphenidate 5mg tablet PO SCH ×3 (08:15→20:00)
== END 2017-11-16 00:10 | disposition expired | DRG 239 ==
LOC: ER 18:16 → ED HOLD 23:21 → EDBEDREQ 10-03 00:11 → MED 3N 10-03 00:20 → SUR 3N 10-25 17:00
PROVIDERS: ADMIT Internal Medicine Critical Care Medicine; ATTEND Internal Medicine Critical Care Medicine
PROC: 5A1D70Z Performance of Urinary Filtration, Intermittent, Less than 6 Hours Per Day (ICD-10-PCS; principal; 2017-10-04)
PROC: 5A1D70Z Performance of Urinary Filtration, Intermittent, Less than 6 Hours Per Day (ICD-10-PCS; 2017-10-06)
PROC: 0LBV0ZZ Excision of Right Foot Tendon, Open Approach (ICD-10-PCS; 2017-10-06)
PROC: 5A1D70Z Performance of Urinary Filtration, Intermittent, Less than 6 Hours Per Day (ICD-10-PCS; 2017-10-09)
PROC: 5A1D70Z Performance of Urinary Filtration, Intermittent, Less than 6 Hours Per Day (ICD-10-PCS; 2017-10-11)
PROC: 0Y6H0Z3 Detachment at Right Lower Leg, Low, Open Approach (ICD-10-PCS; 2017-10-12)
PROC: 5A1D70Z Performance of Urinary Filtration, Intermittent, Less than 6 Hours Per Day (ICD-10-PCS; 2017-10-13)
PROC: 5A1D70Z Performance of Urinary Filtration, Intermittent, Less than 6 Hours Per Day (ICD-10-PCS; 2017-10-16)
PROC: 5A1D70Z Performance of Urinary Filtration, Intermittent, Less than 6 Hours Per Day (ICD-10-PCS; 2017-10-18)
PROC: 5A1D70Z Performance of Urinary Filtration, Intermittent, Less than 6 Hours Per Day (ICD-10-PCS; 2017-10-20)
PROC: 5A1D70Z Performance of Urinary Filtration, Intermittent, Less than 6 Hours Per Day (ICD-10-PCS; 2017-10-23)
PROC: 5A1D70Z Performance of Urinary Filtration, Intermittent, Less than 6 Hours Per Day (ICD-10-PCS; 2017-10-25)
PROC: 5A1D70Z Performance of Urinary Filtration, Intermittent, Less than 6 Hours Per Day (ICD-10-PCS; 2017-10-27)
PROC: 5A1D70Z Performance of Urinary Filtration, Intermittent, Less than 6 Hours Per Day (ICD-10-PCS; 2017-10-29)
PROC: 5A1D70Z Performance of Urinary Filtration, Intermittent, Less than 6 Hours Per Day (ICD-10-PCS; 2017-11-01)
PROC: 2W1QX6Z Compression of Right Lower Leg using Pressure Dressing (ICD-10-PCS; 2017-11-02)
PROC: 0Y6C0Z2 Detachment at Right Upper Leg, Mid, Open Approach (ICD-10-PCS; 2017-11-02)
PROC: 0KBP0ZZ Excision of Left Hip Muscle, Open Approach (ICD-10-PCS; 2017-11-02)
PROC: 0KBN0ZZ Excision of Right Hip Muscle, Open Approach (ICD-10-PCS; 2017-11-02)
PROC: 5A1D70Z Performance of Urinary Filtration, Intermittent, Less than 6 Hours Per Day (ICD-10-PCS; 2017-11-03)
DX: E11.52 Type 2 diabetes mellitus with diabetic peripheral angiopathy with gangrene (principal); E43 Unspecified severe protein-calorie malnutrition; L89.154 Pressure ulcer of sacral region, stage 4; N18.6 End stage renal disease; L03.115 Cellulitis of right lower limb; I12.0 Hypertensive chronic kidney disease with stage 5 chronic kidney disease or end stage renal disease; T87.53 Necrosis of amputation stump, right lower extremity; E11.22 Type 2 diabetes mellitus with diabetic chronic kidney disease; R15.9 Full incontinence of feces; E11.40 Type 2 diabetes mellitus with diabetic neuropathy, unspecified; E11.621 Type 2 diabetes mellitus with foot ulcer; L97.519 Non-pressure chronic ulcer of other part of right foot with unspecified severity; R29.6 Repeated falls; R62.7 Adult failure to thrive; Z51.5 Encounter for palliative care; Z66 Do not resuscitate; Z99.2 Dependence on renal dialysis; Z79.82 Long term (current) use of aspirin; Z79.899 Other long term (current) drug therapy; Z88.8 Allergy status to other drugs, medicaments and biological substances; Z68.23 Body mass index [BMI] 23.0-23.9, adult; Y92.239 Unspecified place in hospital as the place of occurrence of the external cause
CPT/HCPCS: 36415; 36600; 71010; 80048; 80053; 80202; 82533; 82803; 82947; 82948; 83036; 83735; 84100; 84439; 84443; 84484; 85018; 85025; 85610; 85730; 86885; 86900; 86901; 86920; 87040; 87070; 87075; 87077; 87186; 87340; 88307; 93005; 97110; 97116; 97162; 97530; 97535; 99285; A6212; A6213; A6222; A6223; A6258; A6402; A6446; A6449; A7000; G0257; J0885; J1644; J1815; J2001; J2250; J2270; J2370; J2543; J2704; J2710; J3010; J3370; J3490; J7030; J7120; J7512; P9047; Q0163